=== PATIENT | female | born 1965 | race Caucasian/White ===

== ENCOUNTER 2019-12-30 13:06 | Emergency (ER) | payer SELFPAY ==
[2019-12-30 13:14] VITALS: BP 158/104; PULSE 92; TEMP 36.5; O2SAT 97
--- NOTE | 2019-12-30 13:20 | ED.GENADUL_ITS ---
Discharge Plan Disposition Patient Disposition: HOME Condition: Stable Discharge Details Chief Complaint: RespSymp Clinical Impression: URI (upper respiratory infection) Primary Care Provider: None,None ED Provider: Yesi Austin Home Meds and New Rx's Prescriptions: New azithromycin 250 mg tablet See Rx Instructions .ROUTE .COMPLEX Qty: 6 RF: 0 benzonatate [Tessalon Perles] 100 mg capsule 100 mg PO BID-TID PRN (Reason: cough) Qty: 14 RF: 0 Discharge Instructions Instructions: Upper Respiratory Infection (ED) Additional Instructions: Follow up with primary care provider in 3-5 days. Return to ED sooner if any worsening or concerns. Increase oral fluids. Take medications as directed. At this time your symptoms are consistent with a viral upper respiratory infection. It is very unlikely that this is from coronavirus. At this time you do not have the indications that the CDC would recommend for inpatient testing for coronavirus. I have ordered an outpatient test they will call you on Thursday to make an appointment for testing. Out of an abundance of precaution it would be reasonable to self quarantine yourself for a total of 14 days or until completely symptom-free for greater than 24-48 hours. It would be prudent to wear a mask at all times, always wash your hands frequently, follow-up closely with your primary care provider. You can always call their office first. If you notice any worsening of your symptoms, or any new symptoms such as vomiting, diarrhea, fever, chills, shortness of breath, chest pain, numbness, weakness, or fainting, please CALL and then return immediately to the emergency department for reevaluation. Please CALL first and then follow up with your primary care provider as soon as possible for reassessment and reevaluation. As always, it was a pleasure participating in your medical care today. Stand Alone Forms: Work Release Medical Decision Making 54-year-old female presents with upper respiratory type symptoms since August. Patient states that she was only given albuterol inhaler to go home with has not had any other treatment. She states that her son went to [place] back in August. She reports cough, nausea vomiting diarrhea, fever but none upon arrival. Initial work-up ordered including chest x-ray, albuterol nebulizer, and flu swab. Influenza swab is negative for flu a and B, patient received nebulizer and situation is improved after nebulizer. Patient states she feels better. I will order the [place] 19 nasopharynx swab as an outpatient. Will discuss process and instructions will be given to patient. IMPRESSION: No acute pulmonary findings. Currently the patient does have a concerning travel history to a high risk area, and/or direct or known indirect exposure to an area and/or patient's with known coronavirus activity. The patient demonstrates some concerning red flags as noted by the CDC for coronavirus including fever, cough, and/or shortness of breath. The patient looks notably clinically well, and does not demonstrate evidence of respiratory distress, significant or severe illness, or sepsis. Per CDC recommendations, coronavirus testing has been performed and is approved by the [facility]. Additionally patient currently does not demonstrate symptoms indicative of admission or further observation here. At this time based on the patient's current clinical picture symptoms are likely secondary to a non- coronavirus viral illness. Out of an abundance of precaution taking into account the current level of national concern, the patient's entire clinical picture, and CDC recommendations, the patient can be discharged home. Per CDC recommendations we will recommend a 14-day quarantine of the patient I have discussed good handwashing techniques, the importance of a mask, and we have also included CDC recommendations for home monitoring and isolation. I have extensively reviewed the treatment plan and discharge instructions with the patient. I have addressed all patient concerns at this time. The patient was made aware of what symptoms to monitor for that would warrant a return to the emergency department. I also discussed the importance of calling the patient's PCP, as well as the ED for any concerns or prior to return. Discussed the plan with the patient, they demonstrate verbal understanding and agreement with our assessment and plan at this time. Patient was placed on follow-up list for establishment of primary care provider. Lab Data Lab results reviewed: Yes I reviewed the patient's lab results. HPI General Mode of arrival: ambulatory . Date/Time Provider Initiated Documentation: 12/30/19 13:12 . Limitations to Documentation: no limitations . Information obtained by: patient . HPI Narrative: 54-year-old female presents with upper respiratory type symptoms since August. Patient states that she was only given albuterol inhaler to go home with has not had any other treatment. She states that her son went to [place] back in August. She reports cough, nausea vomiting diarrhea, fever but none upon arrival. Related Data Home Medications Medication Instructions Recorded Confirmed azithromycin See Rx Instructions .ROUTE 12/30/19 .COMPLEX #6 tab benzonatate [Tessalon Perles] 100 mg PO BID-TID PRN #14 cap 12/30/19 Previous Rx's Medication Instructions Recorded azithromycin See Rx Instructions .ROUTE 12/30/19 .COMPLEX #6 tab benzonatate [Tessalon Perles] 100 mg PO BID-TID PRN #14 cap 12/30/19 General Stated Complaint: RespSymp GLENNA: 3 Review of Systems Narrative: Constitutional: Negative for weight loss, alert and oriented, well groomed, normal body habitus, appears comfortable. HEENT: Denies trauma, headaches, blurry vision, nasal discharge, sore throat, trouble swallowing. Chest: Denies chest pain, palpitations, irregular rhythm, hypertension. Respiratory: Denies, hemoptysis. Positive cough. GI: Denies abdominal pain, constipation. Reports intermittent nausea vomiting diarrhea. : Denies dysuria, hematuria, flank pain, rectal bleeding. Neuro: Denies dizziness, blurry vision, weakness, syncope, headache or facial numbness. Hematologic: Denies easy bruising, intolerance to heat or cold, hair loss. [facility] Social History Smoking/Tobacco Use Status: Current-Occasional Tobacco Type: cigarettes Years smoked: 25 Alcohol Intake: never Drug use: Occasionally Substance use type: marijuana Do you feel safe at home: Yes Exam Narrative Exam Narrative: Constitutional: Allert and oriented x3. Appears stated age. Head: Normocephalic, no trauma. Eyes: Pupils PERRLA, Red reflex noted, EOM's intact. Eyelids symmetrical withour lesions, discharge, or swelling. ENT: Bilateral TM's WNL, External ear normal to inspection, no mastoid TTP, swelling, or erythema, Nasal turbinates WNL, no nasal discharge. Normal dentition, Posterior pharynx WNL, no exudate. Chest: RRR, Normal S1, S2, distal pulses intact. Resp: Lungs clear to auscultation bilaterally, no wheezes, rales, or rhonchi. Musculoskeletal: Normal gait, 5/5 strength to all four extremities. Skin: No suspicious rashes or lesions. Capillary refill less than 2 sec. Neurologic: Cranial nerves II-XII intact. Alert and oriented x 3. DTR's intact. Hematologic/Lymphatic: No ecchymosis, no lymphadenopathy. Course Vital Signs Vital signs: Vital Signs Temperature 36.5 C 12/30/19 13:14 Pulse 92 H 12/30/19 13:14 Blood Pressure 158/104 H 12/30/19 13:14 Pulse Oximetry 97 12/30/19 13:14 Temperature 36.5 C 12/30/19 13:14 Pulse 92 H 12/30/19 13:14 Blood Pressure 158/104 H 12/30/19 13:14 Blood Pressure Position Sitting 12/30/19 13:14 Pulse Oximetry 97 12/30/19 13:14 Oxygen Delivery Method Room Air 12/30/19 13:14 Oxygen Flow Rate 0 12/30/19 13:14
[2019-12-30 13:38] VITALS: RESP 16; RESP 8
[2019-12-30] MEDS: Albuterol/Ipratropium 3 ML UPD VIAL UPD (13:38)
--- NOTE | 2019-12-30 14:00 | DI.RAD_ITS ---
EXAM: XR PORTABLE CHEST AP CLINICAL HISTORY: Cough TECHNIQUE: 2D digital imaging was performed. COMPARISON: No exams were available for comparison FINDINGS: MEDIASTINUM: Normal. HEART: Normal. PULMONARY VASCULATURE: Normal. LUNGS: Clear. PLEURAL SPACE: No pleural effusion or pneumothorax. BONE:Normal. OTHER FINDINGS:Normal. IMPRESSION: No acute pulmonary findings. DATA REPOSITORY: RADIATION DOSE DELIVERED:
[2019-12-30 15:48] VITALS: BP 124/68; PULSE 97; RESP 16; TEMP 36.8; O2SAT 99
--- NOTE | 2019-12-30 21:23 | NUR.NOTE ---
copied and put in care management box. Nursing Note:
[2020-01-01 21:45] LABS: SARS-CoV-2 RNA Undetected (Undetected); SARS-CoV-2 Specimen Source Nasopharynx
--- NOTE | 2020-01-04 15:18 | NUR.NOTE ---
patient aware of negative covid-19 results. patient does not have a PCP. care management aware. patient was requesting clearance to return to work, DINO Eubanks contacted [facility] for guidance. please see [facility] note. Nursing Note:
--- NOTE | 2020-02-24 12:12 | PDOC.ERCMPRO ---
- If Service Date Differs Date of service: 12/26/19 Time of Service: 12:13 Care Management Progress Note At the request of ED provider, CM coordinated a referral to [facility] to assist patient in establishing care with a primary care provider.
== END 2019-12-30 15:50 | disposition home or self-care (01) ==
LOC: ER 15:51
PROVIDERS: Emergency Provider Registered Nurse Emergency
DX: J06.9 Acute upper respiratory infection, unspecified (principal); R05 Cough; R50.9 Fever, unspecified; R11.2 Nausea with vomiting, unspecified; B34.9 Viral infection, unspecified; F17.210 Nicotine dependence, cigarettes, uncomplicated
CPT/HCPCS: 87449; 94640; 99283; U0003; 71045; J7620

== ENCOUNTER 2021-01-17 12:37 | Outpatient (CLI) | payer MEDICAID, SELFPAY ==
[2021-01-17 13:32] LABS: Abs Immature Grans 0.02 10^3/uL (0.0-0.06); Absolute Basophil Count 0.05 10^3/uL (0.0-0.2); Absolute Eosinophil Count 0.15 10^3/uL (0.0-0.7); Absolute Lymphocyte Count 2.79 10^3/uL (1.2-3.4); Absolute Monocyte Count 0.55 10^3/uL (0.1-0.8); Absolute Neutrophil Count 3.69 10^3/uL (1.2-6.7); Basophils % 0.7; Eosinophils % 2.1; HCT 45.5 % (36.0-46.0); HGB 15.4 g/dL (11.2-15.7); Immature Grans % 0.3; Lymphocytes % 38.5; MCH 30.9 pg (27.0-33.0); MCHC 33.8 % (32.0-36.0); MCV 91.2 fL (80-95); MPV 9.1 fL (8.0-11.0); Monocytes % 7.6; Neutrophils % 50.8; Nucleated RBC 0 %; Platelet Count 319 10^3/uL (130-400); RBC 4.99 10^6/uL (3.93-5.22); RDW 12.4 % (11.7-14.6); RDW-SD 41.1 fL; WBC 7.25 10^3/uL (4.4-10.8)
[2021-01-17 13:33] LABS: Bilirubin Small (Negative); Blood Negative (Negative); Clarity Clear (Clear); Glucose 500 mg/dL (Negative); Ketones >=160 mg/dL (Negative); Leukocyte Esterase Negative (Negative); Nitrite Negative (Negative); Specific Gravity >= 1.030 (1.005-1.025); Urobilinogen 0.2 EU/dL (Up TO 0.2); pH 5.5 (5-8)
[2021-01-17 13:51] LABS: Hemoglobin A1C 12.1 % (<5.7)
[2021-01-17 14:14] LABS: Iron 83 ug/dL (50-170); Total Iron Binding Capacity 315 ug/dL (250-450)
[2021-01-17 14:39] LABS: Vitamin D 25 Total 38.1 ng/mL (30-100)
[2021-01-17 14:44] LABS: ALT 27 U/L (14-59); AST 15 U/L (15-37); Alkaline Phosphatase 120 U/L (46-116); Anion Gap 10.6 mmol/L (3-11); BUN 12 mg/dL (7-18); Bilirubin, Total 0.4 mg/dL (0.2-1.0); CO2 26.4 mmol/L (21.0-32.0); CREATININE 0.6 mg/dL (0.55-1.02); Calcium 9.3 mg/dL (8.5-10.1); Calculated LDL 157 mg/dL (<100); Chloride 104 mmol/L (98-107); Cholesterol 226 mg/dL (<200); Ferritin 54 ng/mL (8-252); Glucose 200 mg/dL (74-106); HDL Cholesterol 43 mg/dL (40-60); Potassium 4.4 mmol/L (3.5-5.1); Sodium 141 mmol/L (136-145); TSH 0.74 uIU/mL (0.36-3.74); Total Protein 7.1 g/dL (6.4-8.2); Triglyceride 132 mg/dL (<150); Vitamin B12 667 pg/mL (193-986)
[2021-01-17 14:46] LABS: Folate > 20.0 ng/mL (8.6-20.0)
[2021-01-17 15:03] LABS: FREE T4 1.01 ng/dL (0.76-1.46)
[2021-01-17 22:01] LABS: T3,Free 3.3 pg/mL (2.8-5.3)
[2021-01-17 22:37] LABS: Thyroperoxidase Antibody 79 U/mL (<=60)
[2021-01-18 16:54] LABS: C-Peptide 1.9 ng/mL (1.1 - 4.4)
== END 2021-01-17 12:38 | disposition home or self-care (01) ==
LOC: LBO 12:38
PROVIDERS: PCP Family Medicine; Visit Provider Naturopath
DX: E11.65 Type 2 diabetes mellitus with hyperglycemia (principal); E04.9 Nontoxic goiter, unspecified; E55.9 Vitamin D deficiency, unspecified; R53.83 Other fatigue; R35.0 Frequency of micturition
CPT/HCPCS: 36415; 80053; 80061; 82306; 81003; 82607; 82728; 82746; 83036; 83540; 83550; 84439; 84443; 84481; 84681; 85025; 86376

== ENCOUNTER 2021-01-17 18:38 | Emergency (ER) | payer MEDICAID, SELFPAY ==
[2021-01-17] VITALS (14 sets, daily range): BP systolic 108–136; BP diastolic 83–94; PULSE 78–96; TEMP 36.5; O2SAT 94–98
[2021-01-17 19:00] LABS: Bilirubin Small (Negative); Blood Negative (Negative); Clarity Clear (Clear); Glucose >=1000 mg/dL (Negative); Ketones >=160 mg/dL (Negative); Leukocyte Esterase Negative (Negative); Nitrite Negative (Negative); Specific Gravity 1.025 (1.005-1.025)
--- NOTE | 2021-01-17 19:15 | RT.EKG_ITS ---
APPROVED REPORT Exam: Resting ECG Patient Location: E HR:84 bpm ECG Measurements Heart Rate 84 AXIS NM 164 P 46 QRSd 70 QRS -19 QT 360 T 34 QTc 427 Conclusion Sinus rhythm...normal P axis, V-rate 60- 99 Probable left atrial enlargement...P >50mS, <-0.10mV V1 Inferior infarct, old...Q >35mS, II III aVF
[2021-01-17] MEDS: Normal Saline 1,000 ML 1000 ML IV (19:24)
[2021-01-17 19:26] LABS: Abs Immature Grans 0.04 10^3/uL (0.0-0.06); Absolute Basophil Count 0.07 10^3/uL (0.0-0.2); Absolute Eosinophil Count 0.21 10^3/uL (0.0-0.7); Absolute Lymphocyte Count 3.41 10^3/uL (1.2-3.4); Absolute Monocyte Count 0.73 10^3/uL (0.1-0.8); Absolute Neutrophil Count 4.81 10^3/uL (1.2-6.7); Basophils % 0.8; Eosinophils % 2.3; HCT 44.3 % (36.0-46.0); HGB 15.2 g/dL (11.2-15.7); Immature Grans % 0.4; Lymphocytes % 36.8; MCH 31.2 pg (27.0-33.0); MCHC 34.3 % (32.0-36.0); MPV 9.2 fL (8.0-11.0); Monocytes % 7.9; Neutrophils % 51.8; Nucleated RBC 0 %; Platelet Count 314 10^3/uL (130-400); RBC 4.87 10^6/uL (3.93-5.22); RDW 12.3 % (11.7-14.6); RDW-SD 40.8 fL; WBC 9.27 10^3/uL (4.4-10.8)
--- NOTE | 2021-01-17 19:29 | ED.GENADUL_ITS ---
Discharge Plan Disposition Patient Disposition: HOME Condition: Stable Discharge Details Clinical Impression: Diabetes mellitus Primary Care Provider: Edson Brunson ED Provider: Yesi Austin Home Meds and New Rx's Prescriptions: New Lantus Solostar U-100 Insulin 100 unit/mL (3 mL) insulin pen 15 unit subcut QAM Qty: 3 RF: 2 Trulicity 0.75 mg/0.5 mL pen injector 0.75 mg subcut QWEEK Qty: 0.5 RF: 1 metformin 500 mg tablet 500 mg PO DAILY Qty: 30 RF: 1 No Action albuterol sulfate 90 mcg/actuation HFA aerosol inhaler 2 puff IH Q6H PRN (Reason: shortness of breath or wheezing) Qty: 18 RF: 6 Discharge Instructions Instructions: Diabetes and Nutrition (ED), Diabetes Type 1: Management (ED) Additional Instructions: You are placed on a care management list to help establish for follow-up PCP in 1 week. You are also placed on the list to help you get in with hematology nurse educator within 1 week. Begin taking the Metformin once daily, the long-acting Lantus insulin once daily. Also given a prescription for Trulicity which is 1 a week please discuss this with your primary care provider. Check your blood sugars at least 3 times a day. Please return for blood glucose readings less than 60 or greater then 300. Please return for any confusion, weakness, vomiting diarrhea, feeling sick at all. Referrals: Edson Brunson DO [Primary Care Provider] - 3 days Discharge Data Discharge Date/Time-TO BE ENTERED AT DEPARTURE: 01/17/21 21:32 Medical Decision Making 56-year-old female presents to the ER with complaint of hyperglycemia. She was seen recently by a linotyper and had some labs drawn today which showed a glucose of 200 and a hemoglobin A1c of 12.1. She was referred to the ER for further evaluation. She reports over the last couple weeks checking her sugars at home and glucose has been running in the 600s to 400s. She states that over the last week she has changed her diet which has brought her blood sugar down. She does have complaints of headache, blurry vision, mild chest pain on the way over here which she reports has resolved, flank pain worse on the right increased urinary frequency and polydipsia. She does have a strong family history of diabetes. She does also have a history of mitral valve prolapse and childhood rheumatic fever surgical history includes tubal ligation. She reports that her mother father and brother have all had diabetes she is a daily smoker occasional alcohol and also endorses marijuana Labs ordered including CBC, CMP, VBG and urinalysis. Patient was given a liter of normal saline. Urinalysis shows greater than 1000. Glucose small bilirubin. 168 urine ketones. Glucose is 254 anion gap 11.9. Sodium potassium and chloride all within normal limits. VBG shows pH 7.42, PCO2 36 bicarb 23, CO2 21. CBC is largely within normal limits. Due to lack of primary care, hemoglobin A1c of 12 and reports of blood sugars being in the 4?600's I am considering admission for beginning of insulin and diabetic education. 2100: Spoke with Dr. Yi who is on for hospitalist regarding patient case and details he does not recommend admission at this time. He did discuss and gave recommendations for prescription for Metformin and a long-acting basal insulin such as Lantus he also did mention Trulicity which is once a week. Patient verbalized understanding. Patient placed on a care management list for PCP follow-up and hematology nurse educator follow-up. Patient remained hemodynamically stable throughout stay all her questions were answered to the best my ability. This text was generated using Mobule dictation system, please disregard any oddities of phrase or misspellings. HPI General Mode of arrival: ambulatory . Date/Time Provider Initiated Documentation: 01/17/21 18:39 . Limitations to Documentation: no limitations . Information obtained by: patient . HPI Narrative: 56-year-old female presents to the ER with complaint of hyperglycemia. She was seen recently by a linotyper and had some labs drawn today which showed a glucose of 200 and a hemoglobin A1c of 12.1. She was referred to the ER for further evaluation. She reports over the last couple weeks checking her sugars at home and glucose has been running in the 600s to 400s. She states that over the last week she has changed her diet which has brought her blood sugar down. She does have complaints of headache, blurry vision, mild chest pain on the way over here which she reports has resolved, flank pain worse on the right increased urinary frequency and polydipsia. She does have a strong family history of diabetes. She does also have a history of mitral valve prolapse and childhood rheumatic fever surgical history includes tubal ligation. She reports that her mother father and brother have all had diabetes she is a daily smoker occasional alcohol and also endorses marijuana Related Data Home Medications Medication Instructions Recorded Confirmed albuterol sulfate 90 mcg/actuation 2 puff IH Q6H PRN #18 gm 01/10/20 01/17/21 aerosol inhaler dulaglutide [Trulicity] 0.75 mg SUBCUT QWEEK #0.5 ml 01/17/21 insulin glargine [Lantus Solostar 15 unit SUBCUT QAM #3 ml 01/17/21 U-100 Insulin] metformin 500 mg PO DAILY #30 tab 01/17/21 Previous Rx's Medication Instructions Recorded albuterol sulfate 90 mcg/actuation 2 puff IH Q6H PRN #18 gm 01/10/20 aerosol inhaler dulaglutide [Trulicity] 0.75 mg SUBCUT QWEEK #0.5 ml 01/17/21 insulin glargine [Lantus Solostar 15 unit SUBCUT QAM #3 ml 01/17/21 U-100 Insulin] metformin 500 mg PO DAILY #30 tab 01/17/21 Allergies Allergy/AdvReac Type Severity Reaction Status Date / Time No Known Allergies Allergy Verified 01/17/21 18:49 General Stated Complaint: Diabetes GLENNA: 3 Review of Systems Constitutional Constitutional: Reports as per HPI and Reports headache(s) Eyes Eyes: Reports blurry vision and Reports requires corrective lenses ENT Ears, Nose, Mouth, and Throat: Reports headache(s) Cardiovascular Cardiovascular: Reports as per HPI and Reports chest pain Respiratory Respiratory: Denies chest congestion and Denies cough Gastrointestinal Gastrointestinal: Reports as per HPI and Denies diarrhea Genitourinary Genitourinary: Reports as per HPI Neurologic Neurologic: Reports headache(s) Endocrine Endocrine: Reports polydipsia and Reports polyuria [facility] Medical History Foot deformity, acquired History of rheumatic fever as a child Mitral valve prolapse Tubal ligation evaluation (~1995) Family History Mother , heart aneurysm Aneurysm Dementia Father Cancer bladder Brother Pancreatic cancer Social History Smoking/Tobacco Use Status: Current-Occasional Tobacco Type: cigarettes Tobacco: How many years used: 25 Quit status: considering quitting Second Hand Exposure: No Smoking risk assessment performed?: Yes Alcohol Intake: never Drug use: Daily Substance use type: marijuana Adopted: No Foster care: No Housing: apartment Number of Children: 1 Communication Needs: None current occupation: [employer] Sexually active: No What type of physical activity do you participate in: other Details: active at work Frequency: 5-6 times per week Seatbelt use: sometimes Drive intox or ride w/intox local [place] truck driver: No Working smoke detector in home: Yes Fire extinguisher in home: Yes Carbon monox detector in home: Yes Do you feel safe at home: Yes Do you feel safe in your relationship?: Yes Exam Narrative Exam Narrative: Constitutional: Alert and oriented x3. Appears stated age. Well-nourished body habitus. Head: Normocephalic, no trauma. Eyes: Pupils PERRLA, Red reflex noted, EOM's intact. Eyelids symmetrical without lesions, discharge, or swelling. ENT: Bilateral TM's WNL, External ear normal to inspection, no mastoid TTP, swelling, or erythema, Nasal turbinates WNL, no nasal discharge. Normal dentition, Posterior pharynx WNL, no exudate. Chest: RRR, Normal S1, S2, distal pulses intact. Resp: Lungs clear to auscultation bilaterally, no wheezes, rales, or rhonchi. Abd: Soft, nontender to palpation all 4 quadrants. Musculoskeletal: Normal gait, 5/5 strength to all four extremities. Skin: No suspicious rashes or lesions. Capillary refill less than 2 sec. Neurologic: Cranial nerves II-XII intact. Alert and oriented x 3. DTR's intact. Hematologic/Lymphatic: No ecchymosis, no lymphadenopathy. Course Vital Signs Vital signs: Vital Signs Temperature 36.5 C 01/17/21 18:41 Pulse 96 H 01/17/21 18:41 Blood Pressure 120/85 01/17/21 18:41 Pulse Oximetry 96 01/17/21 18:41 Temperature 36.5 C 01/17/21 18:41 Temperature Source Temporal Artery Scan 01/17/21 18:41 Pulse 96 H 01/17/21 18:41 Respiratory Effort Non-Labored 01/17/21 18:48 Blood Pressure 120/85 01/17/21 18:41 Blood Pressure Position Sitting 01/17/21 18:41 Pulse Oximetry 96 01/17/21 18:41 Oxygen Delivery Method Room Air 01/17/21 18:41 Oxygen Flow Rate 0 01/17/21 18:41 Pain Level 0 01/17/21 18:41 Lab/Test Results Lab/Test Results: Laboratory Tests Range/Units 01/17/21 01/17/21 18:55 19:21 WBC (4.4-10.8) 10^3/uL 9.27 RBC (3.93-5.22) 10^6/uL 4.87 Hgb (11.2-15.7) g/dL 15.2 Hct (36.0-46.0) % 44.3 MCV (80-95) fL 91.0 MCH (27.0-33.0) pg 31.2 MCHC (32.0-36.0) % 34.3 RDW (11.7-14.6) % 12.3 Plt Count (130-400) 10^3/uL 314 MPV (8.0-11.0) fL 9.2 Immature Gran % 0.4 Neutrophils % 51.8 Lymphocytes % 36.8 Monocytes % 7.9 Eosinophils % 2.3 Basophils % 0.8 Nucleated RBC % % 0 Absolute Neutrophils (1.2-6.7) 10^3/uL 4.81 Absolute Lymphocytes (1.2-3.4) 10^3/uL 3.41 H Absolute Monocytes (0.1-0.8) 10^3/uL 0.73 Absolute Eosinophils (0.0-0.7) 10^3/uL 0.21 Absolute Basophils (0.0-0.2) 10^3/uL 0.07 Urine Color (Yellow) Yellow Urine Clarity (Clear) Clear Urine pH (5-8) 6.0 Ur Specific [place] (1.005-1.025) 1.025 Urine Protein (Negative) mg/dL Negative Urine Ketones (Negative) mg/dL >=160 H Urine Blood (Negative) Negative Urine Nitrite (Negative) Negative Urine Bilirubin (Negative) Small H Urine Urobilinogen (Up TO 0.2) EU/dL 1.0 H Ur Leukocyte Esterase (Negative) Negative Urine Glucose (Negative) mg/dL >=1000 H
[2021-01-17 19:39] LABS: ALT 25 U/L (14-59); AST 11 U/L (15-37); Albumin 3.8 g/dL (3.4-5.0); Alkaline Phosphatase 114 U/L (46-116); Anion Gap 11.9 mmol/L (3-11); BUN 17 mg/dL (7-18); Bilirubin, Total 0.3 mg/dL (0.2-1.0); CO2 24.1 mmol/L (21.0-32.0); CREATININE 0.7 mg/dL (0.55-1.02); Calcium 9.2 mg/dL (8.5-10.1); Chloride 104 mmol/L (98-107); Glucose 254 mg/dL (74-106); Magnesium 1.9 mg/dL (1.8-2.4); Potassium 3.8 mmol/L (3.5-5.1); Sodium 140 mmol/L (136-145); Total Protein 7.2 g/dL (6.4-8.2)
[2021-01-17 20:05] LABS: BE (Venous) -2 mmol/L (-2-3); HCO3 (Venous) 23 mmol/L (23-28); O2 Sat (Venous) 93 %; TCO2 (Venous) 21 mmol/L (24-29); pCO2 (Venous) 36 mmHg (41-51); pH (Venous) 7.42 (7.31-7.41); pO2 (Venous) 58 mmHg
[2021-01-17] MEDS: Acetaminophen 325 MG TAB 650 MG PO (21:25)
[2021-01-17] MEDS: metFORMIN 500 MG TAB PO (21:25)
--- NOTE | 2021-01-18 01:02 | NUR.NOTE ---
Put copy of referral in [employer]'s box.Nursing Note:
--- NOTE | 2021-01-18 09:40 | NUR.NOTE ---
Nursing Note: Patient called stating that she went to [facility] and they did not have her prescriptions. I called [facility] [place] and they stated that they did have the prescriptions and for her to pick them up in 1 to 1.5 hrs. I told the patient and she is aware. Carrie Dillon
== END 2021-01-17 21:32 | disposition home or self-care (01) ==
PROVIDERS: Emergency Provider Registered Nurse Emergency; PCP Family Medicine
DX: E10.9 Type 1 diabetes mellitus without complications (principal)
CPT/HCPCS: 80053; 82805; 93005; 99283; 81003; 83735; 85025; 93010

== ENCOUNTER 2022-07-21 08:32 | Emergency (ER) | payer MEDICAID, SELFPAY ==
[2022-07-21 08:37] VITALS: BP 132/86; PULSE 89; RESP 17; TEMP 36.7; O2SAT 98
--- NOTE | 2022-07-21 10:06 | W.ED.GENAD ---
Discharge Plan Disposition Patient Disposition: HOME Discharge Details Clinical Impression: Uterine prolapse Primary Care Provider: Edson Brunson ED Provider: Carley Denson Home Meds and New Rx's Prescriptions: Continued cholecalciferol (vitamin D3) 25 mcg (1,000 unit) capsule 25 mcg PO DAILY berberine-herbal comb no.18 Capsule PO TID (DME) blood-glucose meter Misc See Rx Instructions .ROUTE .MEDSUPPLY Qty: 1 0RF Rx Instructions: As directed to check blood glucose. No insulin. Dispense covered brand. (DME) Blood Glucose Test Strip See Rx Instructions .ROUTE .MEDSUPPLY Qty: 100 3RF Rx Instructions: As directed to check blood glucose daily. No insulin. Dispense covered brand. (DME) lancets Misc See Rx Instructions .ROUTE .MEDSUPPLY Qty: 100 3RF Rx Instructions: As directed to check blood glucose daily. No insulin. Dispense covered brand. metformin 1,000 mg tablet 1,000 mg PO BID Qty: 180 3RF albuterol sulfate 90 mcg/actuation HFA aerosol inhaler 2 puff IH Q6H PRN (Reason: shortness of breath or wheezing) Qty: 18 6RF Discharge Instructions Instructions: Uterine Prolapse (ED) Additional Instructions: Please return immediately to the emergency department if you develop any new or worsening symptoms, if your condition does not improve as expected, or if you become otherwise concerned. It is extremely important that you call soon as possible to make an appointment to be seen in follow-up for this visit by your primary care doctor. It is extremely important that you attend your scheduled appointment with gynecology. Referrals: [facility] [Provider Group] - 07/23/22 9:00 am Edson Brunson DO [Primary Care Provider] - Discharge Data Discharge Date/Time-TO BE ENTERED AT DEPARTURE: 07/21/22 14:01 Medical Decision Making Concern for uterine prolapse. Vag path/gc/chl sent for somehwat heterogenous appearance of cervix. Exam/hx at this time not c/w PID, acute emergent intra-abdominal process. Plan for table operator consult. I discussed Pt presentation with Dr. Cerna of table operator, who recommends pelvic US, outpt f/u with gynecology, recommends finger splinting for assistance with urination/defecation until seen by table operator as outpt. Will obtain pelvic US now to facilitate outpt f/u. Ultrasound negative for acute process. Plan for outpatient follow-up with gynecology. I had a discussion with Patient regarding return to emergency department precautions, home care, and importance of outpatient follow-up. Pt verbalizes understanding of the plan and is amenable. Patient discharged to home with clear plan for outpatient follow-up. All questions were answered. Disposition decision was made weighing the risks and benefits of hospitalization versus outpatient treatment, the risk for further decompensation, and the patient's wishes. Medical Records Medical records reviewed: Yes I reviewed the patient's medical records. Imaging Data Radiologic Study: Attestation: I personally reviewed and interpreted this imaging study as follows: Radiologist's impression: EXAM:? US PELVIS LIMITED CLINICAL HISTORY: ? uterine prolapse.? TECHNIQUE:? Transabdominal and transvaginal pelvic ultrasound was performed using standard protocol. COMPARISON:? No exams were available for comparison FINDINGS: UTERUS: Position: Anteverted. Size: 5.5 long by 2.8 AP by 3.7 transverse cm Endometrium: 0.2 cm. Normal for patient's menstrual status. Myometrium: Unremarkable. Cervix: Unremarkable. OVARIES: The left ovary was not visualized on this examination. Right: 2 x 1.1 x 1.6 cm Cyst or mass: No suspicious cystic or solid masses.? DOPPLER: Color: Uniform flow to the right ovary.? CUL-DE-SAC: Free fluid: None. Other: None. IMPRESSION: 1. No evidence of a uterine mass. 2. Normal-appearing uterus with endometrial stripe within normal limits. 3. Unremarkable right ovary.? The left ovary was not visualized on this examination.? No left adnexal mass is seen. 4. Findings were discussed with Dr. Carley Denson at 12:57 p.m. on 07/21/2022. Lab Data Lab results reviewed: Yes I reviewed the patient's lab results. Labs: Laboratory Tests Range/Units 07/21/22 12:50 Chlamydia DNA Probe (Negative) Negative Chlamydia/GC DNA Source Not Applicable N.gonorrhoeae DNA Probe (Negative) Negative HPI General Mode of arrival: ambulatory. Date/Time Provider Initiated Documentation: 07/21/22 10:06. Limitations to Documentation: no limitations. Information obtained by: patient, RN notes reviewed and old records reviewed. HPI Narrative: Micahelle Zee is a 57-year-old woman with a history of nfe-ocngfas-yexzdmnht diabetes, mitral valve prolapse presenting to the emergency department with uterine prolapse. Patient reports that over the past week she had relatively sudden onset of constipation and sensation of urinary retention/needing to push her urine out. Patient reports that she is not normally constipated and has not had similar symptoms in the past. Patient reports that she was going to the bathroom last night and wiped and noticed that it seemed as if she was experiencing uterine prolapse from her vagina. Patient reports that she has also had low back pain wrapping around to bilateral hips since onset of symptoms 1 week ago. She reports that this is ongoing, denies any other pain. She denies fever, shortness of breath, vomiting, diarrhea, numbness, weakness. Patient reports baseline intermittent cough that is unchanged and nausea. Has had a normal appetite. Related Data Home Medications Medication Instructions Recorded Confirmed berberine-herbal comb no.18 capsule cap PO TID 01/28/21 01/02/22 blood sugar diagnostic (Blood #100 ea 01/28/21 01/02/22 Glucose Test strips) blood-glucose meter #1 ea 01/28/21 01/02/22 cholecalciferol (vitamin D3) 25 25 mcg PO DAILY 01/28/21 07/21/22 mcg (1,000 unit) capsule lancets #100 ea 01/28/21 01/02/22 albuterol sulfate 90 mcg/actuation 2 puff inhalation Q6H PRN 12/06/21 07/21/22 aerosol inhaler shortness of breath or wheezing #18 grams metformin 1,000 mg tablet 1,000 mg PO BID #180 tabs 03/27/22 07/21/22 Previous Rx's Medication Instructions Recorded blood sugar diagnostic (Blood #100 ea 01/28/21 Glucose Test strips) blood-glucose meter #1 01/28/21 lancets #100 ea 01/28/21 albuterol sulfate 90 mcg/actuation 2 puff inhalation Q6H PRN 12/06/21 aerosol inhaler shortness of breath or wheezing #18 grams metformin 1,000 mg tablet 1,000 mg PO BID #180 tabs 03/27/22 Allergies Allergy/AdvReac Type Severity Reaction Status Date / Time No Known Allergies Allergy Verified 07/23/22 09:14 General Stated 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: 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[employer]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 GLENNA: 3 Review of Systems Narrative: Constitutional: denies fevers Eyes: denies eye pain ENT: denies ear pain, dental pain, sore throat Cardiovascular: denies chest pain Respiratory: denies SOB, reports chronic intermittent cough GI: denies abdominal pain, vomiting, diarrhea, reports constipation, nausea : denies flank pain, dysuria, reports urinary hesitation MSK: denies neck pain, arthralgias, myalgias, reports low bilateral back pain Skin: denies rash Neuro: denies headaches, numbness, weakness PFSH All Active Problems Uterine prolapse (Acute) Stress fracture of metatarsal bone of left foot (Acute 03/17/22) Bunionette of left foot (Acute) Left foot pain - 12/25/21 Podiatry note Acquired bilateral metatarsus adductus (Acute) 12/25/21 Podiatry note Type 2 diabetes mellitus with diabetic polyneuropathy (Acute) 12/25/21 Podiatry note Diabetes mellitus (Chronic) Foot deformity, acquired (Acute) Mitral valve prolapse (Acute) Medical History History of rheumatic fever as a child Tubal ligation evaluation (~1995) Surgical History History of bunionectomy of left great toe (01/21/22) [facility] - [facility] Family History Mother , heart aneurysm Aneurysm Dementia Father Cancer bladder Brother Pancreatic cancer Social History Smoking/Tobacco Use Status: Current-Occasional Tobacco Type: cigarettes Tobacco: How many years used: 25 Quit status: considering quitting Second Hand Exposure: No Smoking risk assessment performed?: Yes Alcohol Intake: never Drug use: Daily Substance use type: marijuana Adopted: No Foster care: No Housing: apartment Number of Children: 1 Communication Needs: None 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[employer] Sexually active: No How often do you talk on the phone with friends or family?: three or more times per week Panel score (0-1 are the most socially isolated patients): 1 What type of physical activity do you participate in: other Details: active at work Frequency: 5-6 times per week Seatbelt use: sometimes Drive intox or ride w/intox commercial driver's license driver: No Working smoke detector in home: Yes Fire extinguisher in home: Yes Carbon monox detector in home: Yes Do you feel safe at home: Yes Do you feel safe in your relationship?: Yes Exam Narrative Exam Narrative: Constitutional: well and [id number]-heblzvdoa, pleasant, conversing normally HENT: head atraumatic/normocephalic/normal inspection, mucous membranes moist Eyes: conjunctiva normal, sclera normal, pupils 3mm b/l Neck: no stridor, normal ROM, trachea midline Resp: normal work of breathing, speaking in full sentences Cardio: normal rate, normal rhythm GI: abdomen soft, non-tender, non-distended : Normal appearance to the external genitals on pelvic exam, general discomfort during speculum exam, normal appearance to the cervix, small amount of white discharge. Prolapse to the introitus noted in left lateral decubitus position Back: normal inspection, no rash, no tenderness to palpation of the lumbar spine or paraspinals Skin: warm, dry, normal color, no rash Neuro: alert, not altered, grossly non-focal, normal tone Ext: no edema Psych: normal mood, normal affect, normal behavior Course Vital Signs Vital signs: Vital Signs Temperature 36.7 C 07/21/22 08:37 Pulse 89 07/21/22 08:37 Respiratory Rate 17 07/21/22 08:37 Blood Pressure 132/86 07/21/22 08:37 Pulse Oximetry 98 07/21/22 08:37 Temperature 36.7 C 07/21/22 08:37 Temperature Source Tympanic 07/21/22 08:37 Pulse 89 07/21/22 08:37 Respiratory Rate 17 07/21/22 08:37 Respiratory Effort Non-Labored 07/21/22 08:40 Blood Pressure 132/86 07/21/22 08:37 Blood Pressure Position Sitting 07/21/22 08:37 Pulse Oximetry 98 07/21/22 08:37 Oxygen Delivery Method Room Air 07/21/22 08:37 Oxygen Flow Rate 0 07/21/22 08:37 Pain Level 6 07/21/22 08:37
[2022-07-21 11:23] VITALS: RESP 18
[2022-07-21 11:37] VITALS: BP 99/74; PULSE 86; RESP 18; TEMP 37.3; O2SAT 99
--- NOTE | 2022-07-21 12:00 | DI.US_ITS ---
Exam(s) US PELVIS LIMITED EXAM: US PELVIS LIMITED CLINICAL HISTORY: uterine prolapse. TECHNIQUE: Transabdominal and transvaginal pelvic ultrasound was performed using standard protocol. COMPARISON: No exams were available for comparison FINDINGS: UTERUS: Position: Anteverted. Size: 5.5 long by 2.8 AP by 3.7 transverse cm Endometrium: 0.2 cm. Normal for patient's menstrual status. Myometrium: Unremarkable. Cervix: Unremarkable. OVARIES: The left ovary was not visualized on this examination. Right: 2 x 1.1 x 1.6 cm Cyst or mass: No suspicious cystic or solid masses. DOPPLER: Color: Uniform flow to the right ovary. CUL-DE-SAC: Free fluid: None. Other: None. IMPRESSION: 1. No evidence of a uterine mass. 2. Normal-appearing uterus with endometrial stripe within normal limits. 3. Unremarkable right ovary. The left ovary was not visualized on this examination. No left adnexal mass is seen. 4. Findings were discussed with Dr. Carley Denson at 12:57 p.m. on 07/21/2022. DATA REPOSITORY:
[2022-07-22 14:41] LABS: Chlamydia Result Negative (Negative); GC Result Negative (Negative)
== END 2022-07-21 14:01 | disposition home or self-care (01) ==
PROVIDERS: Emergency Provider Student in an Organized Health Care Education/Training Program; PCP Family Medicine
DX: N81.4 Uterovaginal prolapse, unspecified (principal); E11.9 Type 2 diabetes mellitus without complications
CPT/HCPCS: 76857; 87491; 87591; 99284; 87480; 87510; 87660; 99282

== ENCOUNTER 2022-08-11 02:35 | Outpatient (CLI) | payer MEDICAID, SELFPAY ==
[2022-08-11 13:53] LABS: HCT 43.3 % (36.0-46.0); HGB 14.1 g/dL (11.2-15.7); MCHC 32.6 % (32.0-36.0); MCV 89 fL (80-95); MPV 8.6 fL (8.0-11.0); Platelet Count 353 10^3/uL (130-400); RBC 4.86 10^6/uL (3.93-5.22); RDW-SD 46.1 fL; WBC 9.67 10^3/uL (4.4-10.8)
[2022-08-11 14:24] LABS: ALT 20 U/L (14-59); AST 14 U/L (15-37); Albumin 3.8 g/dL (3.4-5.0); Alkaline Phosphatase 114 U/L (46-116); Anion Gap 13.1 mmol/L (3-11); BUN 28 mg/dL (7-18); Bilirubin, Total 0.2 mg/dL (0.2-1.0); CO2 22.9 mmol/L (21.0-32.0); CREATININE 1.2 mg/dL (0.55-1.02); Calcium 9.3 mg/dL (8.5-10.1); Chloride 105 mmol/L (98-107); Glucose 112 mg/dL (74-106); Potassium 4.7 mmol/L (3.5-5.1); Sodium 141 mmol/L (136-145); Total Protein 7.5 g/dL (6.4-8.2)
== END 2022-08-11 02:36 | disposition home or self-care (01) ==
LOC: LBO 02:35
PROVIDERS: PCP Family Medicine; Visit Provider Obstetrics & Gynecology Gynecology
DX: Z01.818 Encounter for other preprocedural examination (principal)
CPT/HCPCS: 36415; 80053; 85027; 86850; 86900; 86901

== ENCOUNTER 2022-08-13 10:38 | Observation (INO) | payer MEDICAID, SELFPAY ==
[2022-08-13] VITALS (58 sets, daily range): BP systolic 108–146; BP diastolic 72–104; PULSE 64–91; RESP 16–23; TEMP 36–36.4; O2SAT 78–100; BMI 31.1
[2022-08-13] MEDS: Lactated Ringers 1,000 ML 125 ML IV ×3 (06:39→19:16)
--- NOTE | 2022-08-13 07:00 | ANES.PREOP_ITS ---
General Info Date of Service Date Performed: 08/13/22 Height: 5 ft 1 in Weight: 74.7 kg Body Mass Index (BMI): 31.1 Surgical Procedure: Operation Date: 08/13/22 07:40 Proposed Procedure Side Surgeon p Hysterectomy Vaginal Laparoscopic Assist w/Bilateral Salpingoopherectomy, Bladder Cystoscopy Simi Quintanilla MD s Anterior/Posterior Repair Simi Quintanilla MD Meds Allergies and Home Medications Allergies Allergy/AdvReac Type Severity Reaction Status Date / Time No Known Allergies Allergy Verified 08/13/22 06:19 Home Medication Medication Instructions Recorded berberine-herbal comb no.18 capsule cap PO TID 01/28/21 blood sugar diagnostic (Blood #100 ea 01/28/21 Glucose Test strips) blood-glucose meter #1 ea 01/28/21 cholecalciferol (vitamin D3) 25 25 mcg PO DAILY 01/28/21 mcg (1,000 unit) capsule lancets #100 ea 01/28/21 albuterol sulfate 90 mcg/actuation 2 puff inhalation Q6H PRN 12/06/21 aerosol inhaler shortness of breath or wheezing #18 grams metformin 1,000 mg tablet 1,000 mg PO BID #180 tabs 03/27/22 Current Visit Medications: Current Medications Generic Name Dose Route Start Last Admin Trade Name Freq PRN Reason Stop Dose Admin Ringer's Solution 1,000 mls @ 125 mls/hr 08/13/22 06:00 08/13/22 06:39 IV 09/11/22 23:59 125 mls/hr INFUSION MISBAH Administration Cefazolin Sodium/Dextrose 2 gm in 50 mls @ 100 mls/hr 08/13/22 06:00 Ancef Duplex IVPB 09/11/22 23:59 PREOP MISBAH IV Miscellaneous Supplies 1 each 08/13/22 06:00 Iv Access IV 09/11/22 23:59 DIRECTED MISBAH Sodium Chloride 0 ml 08/13/22 06:00 Normal Saline Flush 10 Ml Syr IV 09/11/22 23:59 PRN PRN Sodium Chloride 0 ml 08/13/22 06:00 Normal Saline 10 Ml Vial IJ 09/11/22 23:59 DIRECTED PRN Sterile Water 0 ml 08/13/22 06:00 Water,Injection,Sterile 10 Ml Vial IJ 09/11/22 23:59 DIRECTED PRN PFSH Active Problems Active Problems: Problem Status Onset Code Uterine prolapse N81.4 Stress fracture of metatarsal bone of left foot 03/17/22 M84.375A Bunionette of left foot M21.622 Acquired bilateral metatarsus adductus M21.6X1, M21.6X2 Type 2 diabetes mellitus with diabetic polyneuropathy E11.42 Diabetes mellitus E11.9 Foot deformity, acquired M21.969 Mitral valve prolapse I34.1 Medical History Medical History History of rheumatic fever as a child Tubal ligation evaluation (~1995) Medical History Comments:: Denice Daily Surgical History Surgical History History of bunionectomy of left great toe (01/21/22) [facility] - Мария Guerrero Tobacco Smoking/Tobacco Use Status: Current-Occasional Tobacco Type: cigarettes Second hand exposure: No Alcohol Alcohol Intake: never Substance Use Substance use: Daily Substance use type: marijuana Vital Signs and Lab Results Vital Signs Most Recent Vital Signs in EMR: Most Recent Vital Signs Temp Pulse Resp BP Pulse Ox 36.4 C L 88 18 130/81 99 08/13/22 06:15 08/13/22 06:15 08/13/22 06:15 08/13/22 06:15 08/13/22 06:15 Point of Care Results Point of Care Results: Finger Stick Blood Glucose 110 08/13/22 06:33 Lab Results Blood Type / Crossmatch: Patient ABO/Rh O Positive 08/11/22 Antibody Screen NEGATIVE 08/11/22 Complete Blood Count: White Blood Count 9.67 10^3/uL (4.4-10.8) 08/11/22 13:40 Red Blood Count 4.86 10^6/uL (3.93-5.22) 08/11/22 13:40 Hemoglobin 14.1 g/dL (11.2-15.7) 08/11/22 13:40 Hematocrit 43.3 % (36.0-46.0) 08/11/22 13:40 Platelet Count 353 10^3/uL (130-400) 08/11/22 13:40 Complete Metabolic Panel: Sodium 141 mmol/L (136-145) 08/11/22 13:40 Potassium 4.7 mmol/L (3.5-5.1) 08/11/22 13:40 Chloride 105 mmol/L (98-107) 08/11/22 13:40 Carbon Dioxide 22.9 mmol/L (21.0-32.0) 08/11/22 13:40 BUN 28 mg/dL (7-18) H 08/11/22 13:40 Creatinine 1.2 mg/dL (0.55-1.02) H 08/11/22 13:40 Est GFR (CKD-EPI 2020) 52.80 (mL/min/1.73m2) 08/11/22 13:40 Calcium 9.3 mg/dL (8.5-10.1) 08/11/22 13:40 Albumin 3.8 g/dL (3.4-5.0) 08/11/22 13:40 Glucose 112 mg/dL (74-106) H 08/11/22 13:40 Liver Function Panel: Alanine Aminotransferase (ALT/SGPT) 20 U/L (14-59) 08/11/22 13: 40 Aspartate Amino Transf (AST/SGOT) 14 U/L (15-37) L 08/11/22 13: 40 Coagulation Panel: No Data to Display Cardiac Panel: No Data to Display Arterial Blood Gas: No Data to Display Venous Blood Gas: No Data to Display Pancreas Panel: No Data to Display Thyroid Panel: No Data to Display Infectious Disease: Neisseria gonorrhoeae DNA Probe Negative (Negative) 07/21/22 1 2:50 Blood Cultures: No Data to Display Toxicology Panel: No Data to Display Imaging and Studies Imaging and Studies Study information below may be from another EMR and interpreted by another provider. Please see original notes in EMR for more complete details. EKG Summary: Conclusion Sinus rhythm...normal P axis, V-rate 60- 99 Probable left atrial enlargement...P >50mS, <-0.10mV V1 Inferior infarct, old...Q >35mS, II III aVF 01/17/21 Anesthesia Assessment and Plan Anesthesia History Personal History: No History of Anesthesia Complications Family History: No Family History of Anesthesia Complications Exercise Tolerance Exercise Tolerance: Metabolic Equivalents>4 Pertinent Negatives Pertinent Negatives: No Symptoms of GERD, No Major Cardiovascular Symptoms or Complaints, No Major Pulmonary Symptoms or Complaints and No History of CVA/TIA Cardiac & Pulmonary Exam Cardiac Exam: Heart Murmur Present Pulmonary Exam: Clear Bilateral Breath Sounds Implantable Cardiac Device Does patient have a Pacemaker or an ICD?: No Airway Exam Known Difficult Airway: No Mallampati Class: 3 Mouth Opening: Normal (> 3cm) Thyromental Distance: Less than 3 cm Neck Range of Motion: Full ROM Neck Circumference: Normal Teeth Condition: Normal Dentition ASA Classification ASA Score: ASA 2 Emergency Case?: No NPO Status NPO Status: NPO Clears >2 hours, Solids >8 hours Anesthesia Plan Resuscitation Status: Full Code Anesthesia Technique: General Anesthesia Airway Planned: Endotracheal Tube Pain Management: Intrathecal Analgesia Monitors Used: Standard Monitors
[2022-08-13] MEDS: ceFAZolin 2 GM/50 ML BAG IVPB (07:39)
[2022-08-13] MEDS: Bupivacaine 0.25% Pres-Free 30 ML VIAL (08:19)
[2022-08-13 08:46] LABS: Source Nasal/Nares
--- NOTE | 2022-08-13 09:18 | UTER_PTH ---
PATIENT: Michaelle Zee LOC: ICU U#:[id number] AGE/SX: 57/F ROOM: ICU.219 RE08/13/[address]: Simi Quintanilla : 1965 BED: A DIS: 08/14/2022 SPEC #: [id number] RECD: 08/13/22 12:52 STATUS: DEBBIE REQ #: [id number] TRIP: 08/13/22 09:[address]: Simi Quintanilla DEPT: Surgical Specimen RECD BY: Anneliese Weber ENTERED: 08/13/22 12:53 SP TYPE: UTER OTHR DR: Edson Brunson DO Tissues: 1 - UTERUS W OR W/O OVARIES(NOT TUMOR/PROLAPSE) Procedures: GROSS AND MICRO LEVEL 4 Comments: [id number]
[2022-08-13 09:29] LABS: COVID-19 PCR POSITIVE (Negative)
--- NOTE | 2022-08-13 10:43 | ROE_ITS ---
Date of service: 08/13/22 Time of Service: 10:43 Operative Note Operative Note DATE OF PROCEDURE: 08/13/22 PRE-OP DIAGNOSIS: stage 2 uterine prolpase, stage 3 rectocele, stage 1 cystocele covid test positive PROCEDURE: LAVH, BSO, posterior coloporraphy, bladder cystoscopy SURGEON: Simi Quintanilla ASSISTING SURGEON: Yolanda Cerna Refer to Anesthesia Record ESTIMATED BLOOD LOSS: 50 PATHOLOGY: other (uterus, fallopian tubes, ovaries to pathology) COMPLICATIONS: None Patient was transported to: ICU Patient's condition: stable Indications: 57yo postmenopausal female with new onset of symptomatic pelvic organ prolapse. She declined a pessary and requested surgical repair. Findings: Uterus small, previous tubal ligation, nl appearing ovaries. Nl appendix, Nl upper abdomen. Pt had an interoperative Covid test as per hospital protocol which returned as positive. Procedure Description: Patient was taken to the operating room where spinal anesthesia was attempted but unsuccessful. General endotracheal anesthesia was administered without diffi culty. She received 2 g of Ancef upon arrival in the OR. She was then placed in the dorsal lithotomy position in yellowfin stirrups with SCDs in place. After being prepped and draped in the usual sterile fashion a surgical timeout was performed. Romano catheter was placed to gravity drainage. A weighted speculum was placed in the vagina and the anterior lip of the cervix was grasped with a single-tooth tenaculum and the cervix dilated to 14 Barber. A Zumi uterine manipulator was successfully inserted into the uterine cavity, the balloon on the device inflated and the device left in place. Attention was then turned to the patient's abdomen. The umbilical fold was infiltrated with quarter percent Marcaine without epinephrine. A scalpel was then used to make a 12mm vertical skin incision in the umbilical fold. Two penetrating towel clips were used to tent up the skin and through the periumbilical incision and a Veres needle was introduced into the abdomen with carbon dioxide as the distention medium. Intra-abdominal placement was confirmed by a drop in the intra-abdominal pressure. Once a pneumoperitoneum was established a 12 mm Visiport was placed under direct visualization. Patient was then placed in Trendelenburg position. Two sites approximately 6 cm diagonally from the umbilical incision the skin were infiltrated with 1cc of 0.25% Marcaine without epinephrine, incised with a scalpel and two 5 mm lower ports were placed under direct visualization. After careful inspection of the pelvis a LigaSure electrocautery device was used to clamp, cauterize and transect the suspensory ligament of the left ovary. The left broad ligament was clamped, cauterized and transected to access the left round ligament which was then clamped, cauterized and transected to the level of the lower uterine segment. Uterine vessels were clamped and cauterized. The vesico-uterine peritoneum was incised and the the from the lower uterine segment and mobilized off of the body of the cervix. The pedicles of the suspensory, round and broad ligaments were inspected and noted to be hemostatic. On the contralateral side the right ovarian suspensory ligament, the round l igament and right broad ligament were sequentially clamped, cauterized and transected using the Ligasure device to the level of the insertion of the uterine vessels. The remaining the vesicouterine peritoneum was incised across the lower uterine segment and the bladder flap created using the Ligasure device and gentle counter traction. All pedicles were inspected and noted to be hemostatic. Decision was made to proceed with the vaginal portion of the case. Laparoscopic instruments were removed from the ports , the pneumoperitoneum was reduced, and the was abdomen covered with sterile drape. A weighted vaginal speculum was placed in the vagina and the anterior and posterior lips of the cervix were grasped with [place] clamps and the body of the cervix infiltrated with a dilute solution of 1% Lidocaine with epinephrine. A circumferential incision of the cervical epithelium was made with a Bovie electrocautery. The posterior cul-de-sac was entered sharply and through the this incision a long billed weighted speculum was placed. The left and right uterosacral ligament complexes were identified clamped, transected and suture-ligated and the suture held long. The vesicouterine fascia was identified and the anterior cul-de-sac incised and entered sharply. Through this incision a curved right angled retractor was inserted and used to retract the bladder away from the operative field. The remaining right and left broad ligament attatchments were sequentially clamped, cauterized, and transected and the specimen was passed off of the operative field. The vaginal cuff was reapproximated in a vertical fashion with a running suture of 0 Vicryl. Care was taken to incorporate the uterosacral ligament complexes into the abdomen closure using an interrupted 0 Vicryl suture. When the vaginal cuff was closed a anterior vaginal wall was well supported and incision was made to not perform a anterior colporrhaphy. The posterior colporrhaphy was performed by initially injecting 2cc of?2% Lidocaine?below the vaginal epithelium between the 5 o'clock and 7 o'clock positions at the edge of the vagina and perineal body. The vaginal epithelium was incised with a scalpel in transverse fashion. The vaginal epithelium was dissected off of the underlying fibromuscularis layer in a cephalad fashion until the inferior margin of vaginal cuff was reached. The vaginal epithelium wa s incised in the midline and the dissection of the vaginal epithelium extended laterally until the levator muscles were reached at the lateral margins of the vagina. Plication of the lateral fibromuscaris tissue was performed proximally and progressed caudally toward the hymenal ring using interrupted sutures of 0- Vicryl. The redundant vaginal epithelium was trimmed and the edges of the vaginal epithelium was reapproximated with a running 0 Vicryl suture. The site was noted to be hemostatic at the completion of the procedure. Instruments removed from the vagina and attention was again turned to the abdomen where a pneumoperitoneum was reestablished and the pelvis inspected using the laparoscope.? The vaginal cuff was intact and was hemostatic as were the round ligament and broad ligament pedicles. The instruments were removed from the port sites, the pneumoperitoneum reduced and the ports removed. The fascia of the periumbilical skin incision was closed with interrupted suture of 0 Vicryl.? The skin of all port site incisions were reapproximated with a subcuticular closure of 4-0 Monocryl followed by steri strips and bandaids. A cystoscopy was performed with both ureteral jets patent with a brisk reflux of urine from each.? The bladder was inspected and no evidence of sutures were present.? Romano catheter was reinserted to gravity drainage and the patient was placed in the dorsal supine position, awakened, extubated, and recovered in the OR secondary to COVID precautions.? All sponge lap needle counts correct x2.
--- NOTE | 2022-08-13 11:46 | NUR.NOTE ---
Patient recived from PACU, no acute respiratory distress, stable vital signs no c/o pain.Nursing Note:
--- NOTE | 2022-08-13 11:59 | W.ANESPOSTOP ---
Postoperative Evaluation Date, Time and Location Date Performed: 08/13/22 Time Performed: 11:14 Patient Location: Intensive Care Unit Vital Signs Most Recent Imported Vital Signs: Most Recent Vital Signs Temp Pulse Resp BP Pulse Ox 36.3 C L 68 17 121/76 95 08/13/22 10:51 08/13/22 11:32 08/13/22 10:51 08/13/22 11:32 08/13/22 11:40 Assessment Mental Status: Awake (Alert & Oriented to Patient Baseline) Airway and Respiratory Function: Patent airway with normal (patient baseline) respiratory exam Cardiovascular Function: Hemodynamically Stable Hydration Status: Adequately Hydrated Nausea & Vomiting: No Nausea or Vomiting Pain: Pain is tolerable per patient Peripheral Nerve Block: Patient did not receive a nerve block
[2022-08-13] MEDS: oxyCODONE 5 mg/Acetaminophen 325 mg TAB PO ×3 (13:27→22:30)
[2022-08-13] MEDS: Nicotine 21 MG/24 HR PATCH TD (16:05)
[2022-08-13] MEDS: Ketorolac 30 MG/ML VIAL IVP ×2 (16:05→22:30)
[2022-08-13] MEDS: Docusate Sodium 100 MG CAP PO (17:15)
[2022-08-13] MEDS: metFORMIN 500 MG TAB 1000 MG PO (17:15)
[2022-08-13] MEDS: Normal Saline Flush 10 ML SYR IV (22:31)
--- NOTE | 2022-08-13 22:49 | NUR.NOTE ---
pt explains to RN that she is a white dragon, the last on on the planet pt explains a current fight between demons and an rose and shows rn photos blown up that show wrinkles in fabric, shadows and pt points out areas where she sees images, describes seeing herself in a cloak riding a dragon fighting a demon this is me when I fought this demon . pt pulls necklace? long stone\crystal on chain with dragon (metal keychain sized) hangs stone in air over bed and states a prayer like statement to father tadeo then tells RN that path of the swinging stone equesl yes or no then asks several questions of father tadeo tells RN that there never were slaves, there are no nazis, and the Jews.... at this point the RN cuts pt off and changes the subject. Although the pt's statements are unusual, the pt has historical items evidence via photographs and dragon/stone form purse. These seem to be her normal thoughts, not a change in mental status.
[2022-08-14 00:22] VITALS: BP 132/72; PULSE 64; RESP 18; TEMP 37; O2SAT 94
[2022-08-14] MEDS: oxyCODONE 5 mg/Acetaminophen 325 mg TAB PO ×2 (03:32→08:12)
[2022-08-14] MEDS: Ketorolac 30 MG/ML VIAL IVP (03:33)
[2022-08-14] MEDS: Normal Saline Flush 10 ML SYR IV (03:34)
[2022-08-14 07:29] LABS: HCT 35.3 % (36.0-46.0); HGB 11.6 g/dL (11.2-15.7); MCH 29.2 pg (27.0-33.0); MCHC 32.9 % (32.0-36.0); MCV 89 fL (80-95); MPV 8.8 fL (8.0-11.0); Platelet Count 304 10^3/uL (130-400); RBC 3.97 10^6/uL (3.93-5.22); RDW 13.9 % (11.7-14.6); RDW-SD 45.5 fL
[2022-08-14 08:04] VITALS: BP 126/74; PULSE 72; O2SAT 96
[2022-08-14] MEDS: Docusate Sodium 100 MG CAP PO (08:12)
[2022-08-14] MEDS: metFORMIN 500 MG TAB 1000 MG PO (08:13)
[2022-08-14 08:22] VITALS: BP 126/74; PULSE 82; RESP 18; TEMP 36; O2SAT 97
--- NOTE | 2022-08-14 08:32 | DSE_ITS ---
Date of service: 08/14/22 Time of Service: 08:34 DS: Diagnosis Discharge Diagnosis (1) History of bilateral salpingo-oophorectomy: Status: Acute (2) S/P laparoscopic assisted vaginal hysterectomy (LAVH): Status: Acute (3) Lab test positive for detection of COVID-19 virus: Status: Acute Asessment and Plan: Pt received intra-op Covid PCR test as per Surgery Dept protocol which returned as positive. Pt remained on Covid precautions during hosptialization. Pt asymptomatic. Discharge Plan Disposition Patient Disposition: HOME Condition: Stable Discharge Details Reason For Visit: LAVH,BSO, posterior coloporraphy,bladder cystoscop Admit Date/Time: 08/13/22 10:38 Admit Provider: Simi Quintanilla Attending Provider: Simi Quintanilla Primary Care Provider: Edson Brunson [facility] Course Hospital Course: Pt admitted the morning of surgery and underwent a LAVH with BSO, posterior colporrhaphy and bladder cystoscopy. She was found to be Covid positive by PCR and was kept on Covid respiratory precautions during her hospitalization. Discharged to home on POD1 with Percocet and Ibuprofen for pain. Pt will f/u in office in 2 weeks for postop check. Home Meds and New Rx's Prescriptions: New oxycodone-acetaminophen [Endocet] 5-325 mg tablet 1 tab PO Q6H MDD 4 PRNQty: 10 0RF Continued cholecalciferol (vitamin D3) 25 mcg (1,000 unit) capsule 25 mcg PO DAILY berberine-herbal comb no.18 Capsule PO TID (DME) blood-glucose meter Misc See Rx Instructions .ROUTE .MEDSUPPLY Qty: 1 0RF Rx Instructions: As directed to check blood glucose. No insulin. Dispense covered brand. (DME) Blood Glucose Test Strip See Rx Instructions .ROUTE .MEDSUPPLY Qty: 100 3RF Rx Instructions: As directed to check blood glucose daily. No insulin. Dispense covered brand. (DME) lancets Misc See Rx Instructions .ROUTE .MEDSUPPLY Qty: 100 3RF Rx Instructions: As directed to check blood glucose daily. No insulin. Dispense covered brand. metformin 1,000 mg tablet 1,000 mg PO BID Qty: 180 3RF albuterol sulfate 90 mcg/actuation HFA aerosol inhaler 2 puff IH Q6H PRN (Reason: shortness of breath or wheezing) Qty: 18 6RF Discharge Instructions Additional Instructions: keep your 2 week postop appointment. Nothing in the vagina. No lifting over 10 lbs for 6 weeks. Stand Alone Forms: [facility] SurgeryW/Incision Activity:: Activity as Tolerated Equipment/Supplies:: No Equipment Needed Diet:: As Tolerated Discharge Orders Discharge Orders: Discharge Order (Routine); Ordered 08/14/22 Ordered By: Simi Quintanilla DS: Summary Summary Time spent discussing smoking cessation with patient: 3 to 10 minutes Time Spent with Patient providing and/or coordinating discharge services: Less than 30 minutes Status at Discharge Functional status at discharge: independent ambulation Overall status at discharge: patient is back to baseline Mental Status: mental status grossly normal Speech and Movement: pressured speech Mood: anxious mood Affect: anxious affect Exam Narrative Exam Narrative: Did well overnight. Caballero discontinued on day of surgery. Tolerating regular diet. Pain well managed Const General: no acute distress Nutritional Appearance: obese Orientation: alert, awake and oriented x3 Resp Effort & Inspection: normal respiratory effort Auscultation: clear to auscultation bilaterally Cardio Rate: regular rate Rhythm: regular rhythm GI Inspection: normal to inspection and incision (covered with steri strips. incision clean dry and intact) Palpation: soft and no hepatosplenomegaly General: deferred Skin General skin exam: no rashes or lesions noted Lesions: no lesions Rashes: no rashes Extrem General: normal to inspection Psych Appearance: grossly normal Mental Status: mental status grossly normal Speech and Movement: pressured speech Mood: anxious mood Affect: anxious affect Attitude: cooperative Thought Process: normal Thought Content: normal Insight: insight good Judgment: judgment good DS: Data Vitals/I&O Vitals and I&O: Vital Signs Temperature 96.8 F L 08/14/22 08:22 Temperature Source Temporal Artery Scan 08/14/22 08:22 Pulse 82 08/14/22 08:22 Pulse Rhythm Regular 08/14/22 00:17 Respiratory Rate 18 08/14/22 08:22 Respiratory Effort Non-Labored 08/14/22 08:19 Respiratory Depth Normal 08/14/22 08:19 Respiratory Pattern Normal 08/14/22 08:19 Blood Pressure 126/74 08/14/22 08:22 Blood Pressure Mean 85 08/14/22 08:04 Pulse Oximetry 97 08/14/22 08:22 Respiratory End-tidal CO2 25 08/13/22 10:51 Oxygen Delivery Method Room Air 08/14/22 08:22 Oxygen Flow Rate 0 08/14/22 08:22 Pain Level 5 08/14/22 08:22 Intake & Output 08/13/22 08/13/22 08/14/22 11:59 23:59 11:59 Intake Total 850 / 2777.084 1927.084 / 2777.084 690 / 690 Output Total 50 / 725 675 / 725 Balance 800 / 2052.084 1252.084 / 2052.084 690 / 690 Weight 164 lb 10.965 oz 165 lb 5.547 oz Intake: IV 850 / 2026.084 1177.084 / 2026.084 Oral 750 / 750 690 / 690 Output: Urine 675 / 675 Estimated Blood Loss 50 / 50 Other: Urine Color Yellow Green Hannibal Indigo Urine Appearance Clear Clear Clear Urine Odor None Comment Uterine prolapse pt using icu toliet under cabinet w/o asking rn 1st. states she had a BM and also urinated twice since caballero out. states she will not be using commode chair pt voids on fold away toilet in room, refuses to use commode Emesis Description None Voiding Methods Toilet Data Completed and Pending Labs on day of discharge: Labs from last 24 hours 08/14/22 08/13/22 06:15 08:34 WBC 11.10 H RBC 3.97 Hgb 11.6 D Hct 35.3 L MCV 89 MCH 29.2 MCHC 32.9 RDW 13.9 Plt Count 304 MPV 8.8 COVID-19 Source Nasal/Nares SARS-CoV-2 (PCR) POSITIVE A* PFSH All Active Problems (Updated 08/14/22 @ 08:35 by Simi Quintanilla MD) Lab test positive for detection of COVID-19 virus (Acute) History of bilateral salpingo-oophorectomy (Acute) S/P laparoscopic assisted vaginal hysterectomy (LAVH) (Acute) Uterine prolapse (Acute) Stress fracture of metatarsal bone of left foot (Acute 03/17/22) Bunionette of left foot (Acute) Left foot pain - 12/25/21 Podiatry note Acquired bilateral metatarsus adductus (Acute) 12/25/21 Podiatry note Type 2 diabetes mellitus with diabetic polyneuropathy (Acute) 12/25/21 Podiatry note Diabetes mellitus (Chronic) Foot deformity, acquired (Acute) Mitral valve prolapse (Acute) Medical History History of rheumatic fever as a child Tubal ligation evaluation (~1995) Surgical History History of bunionectomy of left great toe (01/21/22) [facility] - SylwiaJorge Mayes Yolanda Family History Mother , heart aneurysm Aneurysm Dementia Father Cancer bladder Brother Pancreatic cancer Social History Smoking/Tobacco Use Status: Current-Occasional Tobacco Type: cigarettes Tobacco: How many years used: 25 Quit status: considering quitting Second Hand Exposure: No Smoking risk assessment performed?: Yes Alcohol Intake: never Drug use: Daily Substance use type: marijuana Adopted: No Foster care: No Housing: apartment Number of Children: 1 Communication Needs: None 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
--- NOTE | 2022-08-14 08:42 | PDOC.CMIN ---
- If Service Date Differs Date of service: 08/14/22 Care Management Initial Assess REASON FOR HOSPITALIZATION:: BLAYNE PAST MEDICAL HISTORY/PAST SURGICAL HISTORY:: ll Active Problems . Uterine prolapse (Acute). Stress fracture of metatarsal bone of left foot (Acute 03/17/22). Bunionette of left foot (Acute). Left foot pain - 12/25/21 Podiatry note. Acquired bilateral metatarsus adductus (Acute). 12/25/21 Podiatry note. Type 2 diabetes mellitus with diabetic polyneuropathy (Acute). 12/25/21 Podiatry note. Diabetes mellitus (Chronic). Foot deformity, acquired (Acute). Mitral valve prolapse (Acute). Medical History . History of rheumatic fever as a child. Tubal ligation evaluation (~1995). Surgical History . History of bunionectomy of left great toe (01/21/22). [facility] - Мария Guerrero PREVIOUS FUNCTIONAL STATUS/SOCIAL/FAMILY SUPPORTS:: Michaelle lives in [place], [place] with her son Timbo. ADVANCE DIRECTIVES:: none on file Has patient been provided with info about the portal/API?: Yes Did the patient sign up for the portal?: Yes (previously) CODE STATUS:: Full Code PRIMARY CARE PHYSICIAN:: Medicaid POTENTIAL DISCHARGE NEEDS:: follow up with PCP and plan of care PATIENT/FAMILY EDUCATION NEEDS:: Review of discharge instructions, activity, limitations, follow up plan, discuss Ask Me Three. TRANSPORTATION:: via private vehicle with family PLAN:: Michaelle will likely discharge home with no new services. She will follow up with her community providers and plan of care and transport with family. CM will support Michaelle and assess for ongoing discharge needs.
--- NOTE | 2022-08-14 10:21 | PDOC.CMPRO ---
- If Service Date Differs Date of service: 08/14/22 Time of Service: 10:21 Care Management Progress Note Michaelle had a LAVH yesterday without complications and was discharged early this morning to home. No new services were needed. She transported with family via private vehicle and will follow up with her surgeon in 2 weeks.. During this admission Michaelle was found to be Covid positive and was isolated accordingly.
== END 2022-08-14 10:17 | disposition home or self-care (01) ==
LOC: SUR 11:47 → ICU 11:51
PROVIDERS: Admitting Provider Obstetrics & Gynecology Gynecology; PCP Family Medicine; Visit Provider Obstetrics & Gynecology Gynecology
PROC: 0UT9FZZ Resection of Uterus, Via Natural or Artificial Opening With Percutaneous Endoscopic Assistance (ICD-10-PCS; CPT 58552; principal; 2022-08-13 07:30)
PROC: 0JQC0ZZ Repair Pelvic Region Subcutaneous Tissue and Fascia, Open Approach (ICD-10-PCS; CPT 57260; 2022-08-13 07:30)
DX: N81.2 Incomplete uterovaginal prolapse (principal); E11.42 Type 2 diabetes mellitus with diabetic polyneuropathy; I34.0 Nonrheumatic mitral (valve) insufficiency; F12.90 Cannabis use, unspecified, uncomplicated; F17.210 Nicotine dependence, cigarettes, uncomplicated; Z79.84 Long term (current) use of oral hypoglycemic drugs; U07.1 COVID-19
CPT/HCPCS: 58552; 57250; 52000; 85027; 87635; 88305; 96361; 96374; 88307; G0378; J0131; J0690; J1100; J1885; J2250; J2405; J2704; J3010

== ENCOUNTER 2023-03-16 08:22 | Emergency (ER) | payer MEDICAID, SELFPAY ==
[2023-03-16 08:24] VITALS: BP 135/71; PULSE 96; RESP 18; TEMP 36.9; O2SAT 99
--- NOTE | 2023-03-16 09:15 | DI.CT_ITS ---
Exam(s) CT HEAD WO EXAM: CT HEAD WO CLINICAL HISTORY: AVERY x 1yr, now with right thigh numbness. TECHNIQUE: Imaging Protocol: Axial computed tomography images with coronal and sagittal reformatted images were created and reviewed COMPARISON: No exams were available for comparison FINDINGS: There are no skull fractures. There is no fluid in the visualized paranasal sinuses. There is no evidence of intracranial hemorrhage, mass effect, or shift of midline structures. There are no extra-axial fluid collections. The ventricles are not enlarged or shifted and there is no blo od within the ventricular system nor within the basal cisterns. There is mild symmetrical bifrontal atrophy IMPRESSION: No acute intracranial findings on this noninfused CT scan of the brain. Mild symmetrical bifrontal atrophy. If clinically indicated follow-up MRI can be performed. Called by myself to ER provider RADIATION DOSE DELIVERED: 617.28mGy.cm Total DLP DATA REPOSITORY: All CT scans at this facility are submitted to the National Radiology Data Registry (NRDR) Dose Index Registry (DIR) with the [employer] (A[employer]). RADIATION OPTIMIZATION: All CT scans at this facility use at least one of these dose optimization te chniques: automated exposure control; mA and/or kV adjustment per patient size (includes targeted exa ms where dose is matched to clinical indication); or iterative reconstruction.
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
[2023-03-16 09:19] VITALS: RESP 18
[2023-03-16 09:50] LABS: Abs Immature Grans 0.04 10^3/uL (0.0-0.06); Absolute Basophil Count 0.08 10^3/uL (0.0-0.2); Absolute Eosinophil Count 0.27 10^3/uL (0.0-0.7); Absolute Lymphocyte Count 2.75 10^3/uL (1.2-3.4); Absolute Monocyte Count 0.67 10^3/uL (0.1-0.8); Absolute Neutrophil Count 4.89 10^3/uL (1.2-6.7); Basophils % 0.9; Eosinophils % 3.1; HCT 40.2 % (36.0-46.0); Immature Grans % 0.5; Lymphocytes % 31.6; MCHC 32.3 % (32.0-36.0); MCV 87 fL (80-95); MPV 8.6 fL (8.0-11.0); Monocytes % 7.7; Neutrophils % 56.2; Platelet Count 376 10^3/uL (130-400); RBC 4.64 10^6/uL (3.93-5.22); RDW 15.2 % (11.7-14.6); RDW-SD 47.8 fL
[2023-03-16 10:05] LABS: ALT 20 U/L (14-59); AST 14 U/L (15-37); Albumin 3.9 g/dL (3.4-5.0); Alkaline Phosphatase 123 U/L (46-116); Anion Gap 8.9 mmol/L (3-11); BUN 20 mg/dL (7-18); Bilirubin, Total 0.2 mg/dL (0.2-1.0); CO2 25.1 mmol/L (21.0-32.0); CREATININE 0.8 mg/dL (0.55-1.02); Calcium 9.2 mg/dL (8.5-10.1); Chloride 105 mmol/L (98-107); Estimated GFR 85.35 (mL/min/1.73m2); Glucose 113 mg/dL (74-106); Magnesium 1.9 mg/dL (1.8-2.4); Potassium 4.4 mmol/L (3.5-5.1); Sodium 139 mmol/L (136-145); Total Protein 7.6 g/dL (6.4-8.2)
[2023-03-16 10:35] LABS: Bilirubin Negative (Negative); Blood Negative (Negative); Clarity Clear (Clear); Glucose Negative (Negative); Ketones Negative (Negative); Leukocyte Esterase Negative (Negative); Nitrite Negative (Negative); Specific Gravity >= 1.030 (1.005-1.025); Urobilinogen 0.2 mg/dL (Up to 0.2)
[2023-03-16 11:03] VITALS: BP 127/83; PULSE 81; RESP 16; O2SAT 99
[2023-03-16 11:37] LABS: *AMPHETAMINES SCREEN URINE Negative (Negative); *BARBITURATES SCREEN URINE Negative (Negative); *BENZODIAZEPINES SCREEN URINE Negative (Negative); Cannabinoids THC Positive (Negative); Cocaine Screen,Urine Negative (Negative); METHADONE URINE SCREEN Negative (Negative); OPIATES URINE SCREEN Negative (Negative)
[2023-03-16 11:39] LABS: Tricyclic Antidepressants Negative (Negative)
--- NOTE | 2023-03-16 12:31 | NUR.NOTE ---
called the patient after realizing that she may have left with her IV in. The patient states that she realized that the IV was still in and removed it herself. She confirmed that she removed the IV, held pressure and covered with a bandaide. The patient lives in [place] and did not feel she was able to drive back to confirm the IV was removed. NATEB
[2023-03-16 13:00] LABS: Vitamin B12 251 pg/mL (193-986)
== END 2023-03-16 11:05 | disposition home or self-care (01) ==
PROVIDERS: Emergency Provider Physician Assistant; PCP Family Medicine
DX: R20.8 Other disturbances of skin sensation (principal); R20.0 Anesthesia of skin; R51.9 Headache, unspecified; E11.9 Type 2 diabetes mellitus without complications; D64.9 Anemia, unspecified
CPT/HCPCS: 80053; 80307; 82962; 99284; 70450; 81003; 82607; 83735; 85025

== ENCOUNTER 2023-06-02 07:57 | Emergency (ER) | payer MEDICAID, SELFPAY ==
[2023-06-02] VITALS (16 sets, daily range): BP systolic 92–144; BP diastolic 53–82; PULSE 90–112; RESP 10–28; TEMP 36.9–37.2; O2SAT 95–96
--- NOTE | 2023-06-02 08:00 | RT.EKG_ITS ---
APPROVED REPORT Exam: Resting ECG Reason for Exam: chest discomfort Patient Location: E HR:88 bpm ECG Measurements Heart Rate 88 AXIS RI 138 P 21 QRSd 63 QRS -13 QT 320 T 46 QTc 388 Conclusion Sinus rhythm...normal P axis, V-rate 60- 99
[2023-06-02 08:25] LABS: Abs Immature Grans 0.04 10^3/uL (0.0-0.06); Absolute Basophil Count 0.09 10^3/uL (0.0-0.2); Absolute Eosinophil Count 0.38 10^3/uL (0.0-0.7); Absolute Lymphocyte Count 2.88 10^3/uL (1.2-3.4); Absolute Monocyte Count 0.58 10^3/uL (0.1-0.8); Basophils % 0.9; Eosinophils % 3.7; HCT 39.3 % (36.0-46.0); HGB 12.7 g/dL (11.2-15.7); Immature Grans % 0.4; Lymphocytes % 27.8; MCH 26.8 pg (27.0-33.0); MCHC 32.3 % (32.0-36.0); MCV 83 fL (80-95); MPV 8.5 fL (8.0-11.0); Monocytes % 5.6; Neutrophils % 61.6; Platelet Count 407 10^3/uL (130-400); RBC 4.74 10^6/uL (3.93-5.22); RDW 14.3 % (11.7-14.6); RDW-SD 43.6 fL; WBC 10.37 10^3/uL (4.4-10.8)
[2023-06-02] MEDS: Albuterol/Ipratropium 3 ML UPD VIAL UPD (08:28)
[2023-06-02] MEDS: ACETAMINOPHEN 1,000 MG/100 ML BTL 400 MG IVPB (08:30)
[2023-06-02 08:44] LABS: ALT 17 U/L (14-59); AST 12 U/L (15-37); Albumin 3.7 g/dL (3.4-5.0); Alkaline Phosphatase 126 U/L (46-116); Anion Gap 11.2 mmol/L (3-11); BUN 22 mg/dL (7-18); Bilirubin, Total 0.2 mg/dL (0.2-1.0); CO2 24.8 mmol/L (21.0-32.0); CREATININE 0.8 mg/dL (0.55-1.02); Calcium 9.4 mg/dL (8.5-10.1); Chloride 101 mmol/L (98-107); Estimated GFR 85.35 (mL/min/1.73m2); Glucose 214 mg/dL (74-106); Lipase 39 U/L (16-77); Potassium 4.2 mmol/L (3.5-5.1); Sodium 137 mmol/L (136-145); Total Protein 7.5 g/dL (6.4-8.2); Troponin I < 50 ng/L (<or=60)
--- NOTE | 2023-06-02 08:45 | DI.RAD_ITS ---
Exam(s) XR CHEST 2V PA LATERAL EXAM: XR CHEST 2V PA LATERAL CLINICAL HISTORY: cough, shortness of breath TECHNIQUE: 2D digital imaging was performed of the chest. Two images were obtained. PA and lateral views were obtained. COMPARISON: CR XR PORTABLE CHEST AP from 12/30/2019 FINDINGS: MEDIASTINUM: Normal. HEART: Normal. PULMONARY VASCULATURE: Normal. LUNGS: Clear. PLEURAL SPACE: No pleural effusion or pneumothorax. BONE:Within normal limits for the patient's age. OTHER FINDINGS:Normal. IMPRESSION: No acute pulmonary findings. DATA REPOSITORY: RADIATION DOSE DELIVERED:
--- NOTE | 2023-06-02 09:03 | W.ED.GENAD ---
Discharge Plan Disposition Patient Disposition: Home Discharge Details Clinical Impression: Bronchitis Primary Care Provider: Edson Brunson ED Provider: Anneliese Bains Home Meds and New Rx's Prescriptions: New prednisone 20 mg tablet 40 mg PO ONCE Qty: 10 0RF doxycycline hyclate 100 mg tablet 100 mg PO BID Qty: 20 0RF Continued cholecalciferol (vitamin D3) 25 mcg (1,000 unit) capsule 25 mcg PO DAILY berberine-herbal comb no.18 Capsule 1 cap PO TID (DME) blood-glucose meter Misc See Rx Instructions .ROUTE .MEDSUPPLY Qty: 1 0RF Rx Instructions: As directed to check blood glucose. No insulin. Dispense covered brand. (DME) Blood Glucose Test Strip See Rx Instructions .ROUTE .MEDSUPPLY Qty: 100 3RF Rx Instructions: As directed to check blood glucose daily. No insulin. Dispense covered brand. (DME) lancets Misc See Rx Instructions .ROUTE .MEDSUPPLY Qty: 100 3RF Rx Instructions: As directed to check blood glucose daily. No insulin. Dispense covered brand. metformin 1,000 mg tablet 1,000 mg PO BID Qty: 180 3RF albuterol sulfate 90 mcg/actuation HFA aerosol inhaler 2 puff IH Q6H PRN (Reason: shortness of breath or wheezing) Qty: 18 6RF Discharge Instructions Instructions: Acute Bronchitis (ED) Additional Instructions: Use your inhaler, 2 puffs every 4-6 hours with your spacer as needed for cough, wheeze, shortness of breath Take the steroids as prescribed for the next 5 days Take the antibiotic as prescribed Yogurt daily while on antibiotic and this will make you sensitive to the sun Increase your fluid hydration You may need Mucinex as needed for mucus production Referrals: Edson Brunson DO [Primary Care Provider] - Discharge Data Discharge Date/Time-TO BE ENTERED AT DEPARTURE: 06/02/23 09:58 Medical Decision Making 58-year-old female presents with upper respiratory symptoms for the past week, denies any real chest pain, mild shortness of breath, states she feels like she has phlegm in her chest EKG and labs are within normal limits, feels better after DuoNeb administration, will give albuterol spacer for home We will place on prednisone and treat with doxycycline as patient is a smoker and has had symptoms for a week and a half Discharged home in stable condition with stable vitals Return precautions reviewed and patient expressed understanding, lungs clear to auscultation, no respiratory distress, no calf pain or swelling, distal pulses intact, moist mucous oral membranes, alert and oriented x4 Recheck in 1 week recommended with persistent symptoms Diagnostic labs reviewed Chest x-ray does not show evidence of acute abnormality per radiology interpretation my review Flu, COVID, RSV negative HPI General Date/Time Provider Initiated Documentation: 06/02/23 08:09. HPI Narrative: This 58-year-old female presents for reports of upper respiratory symptoms, cough, congestion, sensation of phlegm in her throat and chest. Denies fever or chills. Been sick for approximately a week and a half. Denies any calf pain or swelling. Related Data Home Medications Medication Instructions Recorded Confirmed berberine-herbal comb no.18 capsule 1 cap PO TID 01/28/21 06/02/23 blood sugar diagnostic (Blood #100 ea 01/28/21 04/22/23 Glucose Test strips) blood-glucose meter #1 ea 01/28/21 04/22/23 cholecalciferol (vitamin D3) 25 25 mcg PO DAILY 01/28/21 06/02/23 mcg (1,000 unit) capsule lancets #100 ea 01/28/21 04/22/23 albuterol sulfate 90 mcg/actuation 2 puff inhalation Q6H PRN 03/06/23 06/02/23 aerosol inhaler shortness of breath or wheezing #18 grams metformin 1,000 mg tablet 1,000 mg PO BID #180 tabs 03/06/23 06/02/23 doxycycline hyclate 100 mg tablet 100 mg PO BID #20 tabs 06/02/23 prednisone 20 mg tablet 40 mg PO ONCE #10 tabs 06/02/23 Previous Rx's Medication Instructions Recorded blood sugar diagnostic (Blood #100 ea 01/28/21 Glucose Test strips) blood-glucose meter #1 ea 01/28/21 lancets #100 ea 01/28/21 albuterol sulfate 90 mcg/actuation 2 puff inhalation Q6H PRN 03/06/23 aerosol inhaler shortness of breath or wheezing #18 grams metformin 1,000 mg tablet 1,000 mg PO BID #180 tabs 03/06/23 doxycycline hyclate 100 mg tablet 100 mg PO BID #20 tabs 06/02/23 prednisone 20 mg tablet 40 mg PO ONCE #10 tabs 06/02/23 Allergies Allergy/AdvReac Type Severity Reaction Status Date / Time No Known Allergies Allergy Verified 06/02/23 09:20 General Stated Complaint: RespSymp GLENNA: 3 PFSH All Active Problems (Updated 06/02/23 @ 09:41 by ALLIE Yanez) Bronchitis (Acute) Postoperative examination (Acute) History of bilateral salpingo-oophorectomy (Acute) S/P laparoscopic assisted vaginal hysterectomy (LAVH) (Acute) Stress fracture of metatarsal bone of left foot (Acute 03/17/22) Bunionette of left foot (Acute) Left foot pain - 12/25/21 Podiatry note Acquired bilateral metatarsus adductus (Acute) 12/25/21 Podiatry note Type 2 diabetes mellitus with diabetic polyneuropathy (Acute) 12/25/21 Podiatry note Diabetes mellitus (Chronic) Foot deformity, acquired (Acute) Mitral valve prolapse (Acute) Medical History History of rheumatic fever as a child Tubal ligation evaluation (~1995) Surgical History History of bunionectomy of left great toe (01/21/22) [facility] - [facility] Family History Mother , heart aneurysm Aneurysm Dementia Father Cancer bladder Brother Pancreatic cancer Social History Smoking/Tobacco Use Status: Current-Occasional Tobacco Type: cigarettes Tobacco: How many years used: 25 Quit status: considering quitting Second Hand Exposure: No Smoking risk assessment performed?: Yes Alcohol Intake: never Drug use: Daily Substance use type: marijuana Adopted: No Foster care: No Housing: apartment Number of Children: 1 Communication Needs: None 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 Sexually active: No How often do you talk on the phone with friends or family?: three or more times per week Panel score (0-1 are the most socially isolated patients): 1 What type of physical activity do you participate in: other Details: active at work Frequency: 5-6 times per week Seatbelt use: sometimes 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 Working smoke detector in home: Yes Fire extinguisher in home: Yes Carbon monox detector in home: Yes Do you feel safe at home: Yes Do you feel safe in your relationship?: Yes Course Vital Signs Vital signs: Vital Signs Temperature 36.9 C 06/02/23 08:00 Pulse 91 H 06/02/23 08:00 Respiratory Rate 18 06/02/23 08:00 Blood Pressure 144/75 H 06/02/23 08:00 Pulse Oximetry 96 06/02/23 08:00 Temperature 37.2 C 06/02/23 08:30 Temperature Source Oral 06/02/23 08:00 Pulse 91 H 06/02/23 08:00 Respiratory Rate 18 06/02/23 08:00 Respiratory Effort Normal 06/02/23 08:19 Respiratory Depth Shallow 06/02/23 08:19 Blood Pressure 144/75 H 06/02/23 08:00 Blood Pressure Position Sitting 06/02/23 08:00 Pulse Oximetry 96 06/02/23 08:00 Oxygen Delivery Method Room Air 06/02/23 08:00 Oxygen Flow Rate 0 06/02/23 08:00 Pain Level 0 06/02/23 08:30 Lab/Test Results Lab/Test Results: Laboratory Tests Range/Units 06/02/23 06/02/23 06/02/23 08:08 08:08 11:14 WBC (4.4-10.8) 10^3/uL 10.37 RBC (3.93-5.22) 10^6/uL 4.74 Hgb (11.2-15.7) g/dL 12.7 Hct (36.0-46.0) % 39.3 MCV (80-95) fL 83 MCH (27.0-33.0) pg 26.8 L MCHC (32.0-36.0) % 32.3 RDW (11.7-14.6) % 14.3 Plt Count (130-400) 10^3/uL 407 H MPV (8.0-11.0) fL 8.5 Immature Gran % 0.4 Neutrophils % 61.6 Lymphocytes % 27.8 Monocytes % 5.6 Eosinophils % 3.7 Basophils % 0.9 Nucleated RBC % (0.0-0.3) % 0.0 Absolute Neutrophils (1.2-6.7) 10^3/uL 6.40 Absolute Lymphocytes (1.2-3.4) 10^3/uL 2.88 Absolute Monocytes (0.1-0.8) 10^3/uL 0.58 Absolute Eosinophils (0.0-0.7) 10^3/uL 0.38 Absolute Basophils (0.0-0.2) 10^3/uL 0.09 Sodium (136-145) mmol/L 137 Potassium (3.5-5.1) mmol/L 4.2 Chloride (98-107) mmol/L 101 Carbon Dioxide (21.0-32.0) mmol/L 24.8 Anion Gap (3-11) mmol/L 11.2 H BUN (7-18) mg/dL 22 H Creatinine (0.55-1.02) mg/dL 0.8 Est GFR (CKD-EPI 2020) (mL/min/1.73m2) 85.35 Glucose (74-106) mg/dL 214 H Calcium (8.5-10.1) mg/dL 9.4 Total Bilirubin (0.2-1.0) mg/dL 0.2 AST (15-37) U/L 12 L ALT (14-59) U/L 17 Alkaline Phosphatase (46-116) U/L 126 H Troponin I (<or=60) ng/L < 50 Cancelled Total Protein (6.4-8.2) g/dL 7.5 Albumin (3.4-5.0) g/dL 3.7 Lipase (16-77) U/L 39
[2023-06-02 09:29] LABS: COVID-19 PCR Negative (Negative); Influenza A PCR Negative (Negative); Influenza B PCR Negative (Negative); RSV PCR Negative (Negative)
[2023-06-02 09:31] LABS: Source Nasopharynx
[2023-06-02] MEDS: Albuterol HFA 8 GM 60 PUFF INH IH (09:55)
[2023-06-02] MEDS: Inhaler, Assist Device 1 EACH MC (09:56)
== END 2023-06-02 09:58 | disposition home or self-care (01) ==
PROVIDERS: Emergency Provider Physician Assistant; PCP Family Medicine
DX: J40 Bronchitis, not specified as acute or chronic (principal); E11.9 Type 2 diabetes mellitus without complications; F17.210 Nicotine dependence, cigarettes, uncomplicated
CPT/HCPCS: 80053; 83690; 87426; 87637; 93005; 94640; 96374; 99285; 71046; 84484; 85025; 93010; 99284; J0131; J7620

== ENCOUNTER → 2023-12-22 03:44 | Outpatient (CLI) | payer MEDICAID, SELFPAY ==
--- NOTE | 2023-12-22 08:15 | DI.MRI_ITS ---
Exam(s) MR BRAIN WO/W EXAM: MR BRAIN WO/W CLINICAL HISTORY: DELUSIONS,HEADACHE,HALLUCINATIONS,? MALIGNANCY,R44.1,R51.9,R44.0. TECHNIQUE: Multiplanar multisequence MRI of the brain was performed. CONTRAST MATERIAL: IV Contrast: 15 ML of Dotarem contrast administered. COMPARISON: CT CT HEAD WO from 03/16/2023 FINDINGS: VENTRICLES AND EXTRA AXIAL SPACES: Normal in size and morphology for the patient's age. HEMORRHAGE: None. CEREBRAL PARENCHYMA: No focus of restricted diffusion to suggest acute infarct. No space-occupying le cristo identified. Moderate frontotemporal atrophy, unchanged from prior CT with somewhat disproportio edmund for the patient's age.. Mild scattered high signal foci in the white matter, consistent with mi crovascular changes. MIDLINE SHIFT: None. BRAINSTEM/CEREBELLUM: Normal. CALVARIUM: Normal. ENHANCEMENT: No suspicious enhancement identified. VISUALIZED PARANASAL SINUSES/MASTOIDS: Small amount of mucous retention in the posterior right spheno id sinus. Sinuses otherwise clear. Orbits: Unremarkable. Pituitary: Normal. Vasculature: Normal flow voids. IMPRESSION: Moderate frontal temporal atrophy, somewhat disproportionate for the patient's age. Mild microvascul ar changes in the white matter. DATA REPOSITORY:
[2023-12-22 12:08] LABS: CREATININE 0.9 mg/dL (0.55-1.02)
[2023-12-22] MEDS: Gadoterate meglumine 20 ML SYRINGE 15 ML IVP (12:32)
[2023-12-22] MEDS: Normal Saline Flush 10 ML SYR IVP (12:33)
== END ==
PROVIDERS: PCP Family Medicine; Visit Provider Nurse Practitioner Adult Health
DX: R44.1 Visual hallucinations; R44.0 Auditory hallucinations; F22 Delusional disorders
CPT/HCPCS: 70553; 82565

== ENCOUNTER 2024-01-04 06:13 | Outpatient (CLI) | payer MEDICAID, SELFPAY ==
--- NOTE | 2024-01-04 21:41 | PDOC.EEG ---
Neurology EEG EEG: [facility] Department of Neurology EEG REPORT Date of Recordin01/04/24 Interpreting Physician: Dr. Maria Isabel Mendez PCP/Referring Provider: Destiny Stacy NP Reason for study: Ms. Zee is a 58 year-old with intermittent delusions. Current Medications: Home Medications Medication Instructions Recorded Confirmed Type berberine-herbal comb no.18 capsule 1 cap PO TID 01/28/21 12/24/23 History blood sugar diagnostic (Blood #100 ea 01/28/21 12/24/23 Rx Glucose Test strips) blood-glucose meter #1 ea 01/28/21 12/24/23 Rx cholecalciferol (vitamin D3) 25 25 mcg PO DAILY 01/28/21 12/24/23 History mcg (1,000 unit) capsule lancets #100 ea 01/28/21 12/24/23 Rx albuterol sulfate 90 mcg/actuation 2 puff inhalation Q6H PRN 03/06/23 12/24/23 Rx aerosol inhaler shortness of breath or wheezing #18 grams metformin 1,000 mg tablet 1,000 mg PO BID #180 tabs 03/06/23 12/24/23 Rx indomethacin 50 mg capsule 50 mg PO TID PRN gout flair #30 06/29/23 12/24/23 Rx caps METHODS: A 21 channel digitized electroencephalogram was performed in the [facility] Clinical Neurophysiology Laboratory. The 10/20 international system of electrode placement was used and bipolar and referential electrode montages were recorded. In addition to EEG the patient was monitored for EKG and lateral/vertical eye movements. Activation procedures of photic stimulation and hyperventilation were performed if applicable. Video was used during activation procedures and during events where applicable. The duration of the recording was 30 minutes. DESCRIPTION OF EEG: The patient was noted to be awake and drowsy during the recording. During maximal wakefulness a 9-10 Hz posterior background rhythm was present which was well-modulated, symmetrical, reactive to eye opening, and of moderate voltage. With eye opening the background activity changed to a low voltage mixture of alpha, beta, and occasional theta range frequencies. Faster frequencies were present in the bilateral anterior head regions. There was a normal anterior-posterior voltage gradient. During drowsiness, there was attenuation of the posterior dominant background rhythm and vertex waves. No stage II sleep was recorded. Activating Procedures: Photic stimulation was performed which produced a symmetrical posterior driving response at various flash frequencies. Hyperventilation was performed with moderate effort and produced no physiological slowing of the background. EKG: EKG revealed normal sinus rhythm. INTERPRETATION: This EEG is normal during the awake state as well as during photic stimulation and hyperventilation. PRIOR EEG: none CLINICAL CORRELATION: No focal regions of cerebral dysfunction or epileptiform activity was present. No sleep was recorded during the study which reduces the sensitivity of the exam. If seizure remains a part of the differential, consider a repeat sleep-deprived EEG or overnight ambulatory EEG. Maria Isabel Mendez MD Date of service: 01/04/24
== END 2024-01-04 06:14 | disposition home or self-care (01) ==
LOC: RT 06:13
PROVIDERS: PCP Family Medicine; Visit Provider Nurse Practitioner Adult Health
DX: R44.1 Visual hallucinations (principal); R44.0 Auditory hallucinations
CPT/HCPCS: 95816

== ENCOUNTER 2024-01-04 10:11 | Outpatient (CLI) | payer MEDICAID, SELFPAY ==
[2024-01-06 18:53] LABS: Syphilis IgG w/Reflex Nonreactive (Nonreactive)
== END 2024-01-04 10:12 | disposition home or self-care (01) ==
PROVIDERS: PCP Family Medicine; Visit Provider Nurse Practitioner Adult Health
DX: R41.82 Altered mental status, unspecified (principal); F29 Unspecified psychosis not due to a substance or known physiological condition
CPT/HCPCS: 36415; 86592; 86780

== ENCOUNTER 2025-08-16 09:13 | Emergency (ER) | payer SELFPAY ==
[2025-08-16 09:37] VITALS: BP 170/88; PULSE 93; RESP 16; O2SAT 97
[2025-08-16 09:40] VITALS: BP 170/88; PULSE 93; TEMP 36.6; O2SAT 97
--- NOTE | 2025-08-16 09:45 | DI.RAD_ITS ---
Exam(s) XR FOOT RT COMPLETE EXAM: XR FOOT RT COMPLETE CLINICAL HISTORY: right foot pain; standing films please. TECHNIQUE: 2D digital imaging was performed. Three views. COMPARISON: No exams were available for comparison FINDINGS: BONES: No acute fracture is present. No bony destructive lesion is seen. Moderate plantar calcaneal spur. JOINTS: No dislocation present. Degenerative changes at the tarsal metatarsal joints. Chronic appearing bony density lateral to the base of the 1st metatarsal. SOFT TISSUE: Normal. IMPRESSION: Degenerative changes at the tarsal metatarsal joints. No acute abnormality. DATA REPOSITORY: RADIATION DOSE DELIVERED:
--- NOTE | 2025-08-16 11:13 | W.ED.GENAD ---
Discharge Plan Disposition Patient Disposition: Home Discharge Details Clinical Impression: Acute foot pain Primary Care Provider: Edson Brunson ED Provider: Dmitri Weaver Home Meds and New Rx's Prescriptions: No Action cholecalciferol (vitamin D3) 25 mcg (1,000 unit) capsule 25 mcg PO DAILY berberine-herbal comb no.18 Capsule 1 cap PO TID (DME) blood-glucose meter Misc See Rx Instructions .ROUTE .MEDSUPPLY Qty: 1 0RF Rx Instructions: As directed to check blood glucose. No insulin. Dispense covered brand. (DME) Blood Glucose Test Strip See Rx Instructions .ROUTE .MEDSUPPLY Qty: 100 3RF Rx Instructions: As directed to check blood glucose daily. No insulin. Dispense covered brand. (DME) lancets Misc See Rx Instructions .ROUTE .MEDSUPPLY Qty: 100 3RF Rx Instructions: As directed to check blood glucose daily. No insulin. Dispense covered brand. albuterol sulfate 90 mcg/actuation HFA aerosol inhaler 2 puff IH Q6H PRN (Reason: shortness of breath or wheezing) Qty: 18 6RF indomethacin 50 mg capsule 50 mg PO TID PRN (Reason: gout flair) Qty: 30 0RF Rx Instructions: administer with food or milk metformin 1,000 mg tablet 1,000 mg PO BID Qty: 180 3RF Discharge Instructions Instructions: Managing acute pain at home Additional Instructions: As discussed, concerned that given your new pain today that there may be an underlying occult fracture that was not visualized on your x-ray. As we discussed there is a particular injury pattern referred to as a Lisfranc fracture which may cause debilitating arthritis if it is missed. Today you declined to have further CT imaging to further assess for this injury, however you did agree to podiatry follow-up as an outpatient. Please use the prescribed crutches, walking boot, and follow-up with podiatry for further assessment. Please follow-up with your primary care provider regarding your visit to the emergency department today. Be sure to discuss results of all test performed here today to include radiology, and laboratory testing as well as results for any pending cultures. Should your symptoms worsen, or if you develop new concerning symptoms, please return immediately emergency department for further evaluation. Stand Alone Forms: Portal Information HPI General Date/Time Provider Initiated Documentation: 11/12/25 09:53. HPI Narrative: MDM/Narrative: Initial Assessment: 60-year-old female with right foot pain after stepping down and hearing a crack. Pain localized to midfoot. Differential Diagnosis: - Lisfranc fracture: Suspected due to midfoot pain. Plan: Weightbearing x-ray, if unable to bear weight, CT scan. - Other foot injuries: Less likely due to absence of twist or turn. Plan: Monitor symptoms, consider further imaging if needed. ED Course: - Ordered weightbearing x-ray - X-ray results are without acute finding as per radiology. Case discussed with the patient we discussed the possibility of Lisfranc fracture if missed may lead to debilitating arthritis and deformity. Patient states due to insurance reasons will decline CT imaging, but will except the podiatry referral, as well as walking boot and crutches. Clinical Impression: - Right foot pain - Suspected Lisfranc fracture Follow-Up: Podiatry This document was created with assistance from [employer]. The patient consented to its use. HPI: The patient is a 60-year-old female with a history of a chronic left foot deformity, previously asymptomatic, now presenting with pain in the right foot. The onset of pain occurred while ascending a step while wearing slippers. The patient describes having high arches and experiencing a spreading sensation in the foot, followed by an audible cracking sound. There was no twisting or turning of the foot involved. She is able to stand independently but experiences discomfort with weight-bearing. Mild edema is noted. There is no history of significant trauma to the same foot or ankle. The patient does not use any assistive devices and is managing the pain with BC powders. ROS: Negative besides as mentioned above Exam: Vital signs: Reviewed. General Appearance: Alert and oriented. No acute distress. HEENT: NCAT, EOMI, not icteric. External ears normal. No rhinorrhea. Moist mucous membranes. Neck: Supple, full range of motion, no observable masses, No meningeal sign. Respiratory: No Respiratory distress. No tachypnea. Cardiovascular: RRR, no edema. Gastrointestinal: Soft, nondistended, No rebound tenderness. Back: No midline tenderness to palpation or palpable step-offs of the C/T/L spine. Musculoskeletal: Right foot shows mild swelling. Pain localized to midfoot. No deformities. Pulses good. Skin: Warm and dry, no rash. Neurological: Normal Gait, Grossly intact. Psychiatric: Appropriate for situation. Radiology: Exam(s) XR FOOT RT COMPLETE EXAM: XR FOOT RT COMPLETE CLINICAL HISTORY: right foot pain; standing films please. TECHNIQUE: 2D digital imaging was performed. Three views. COMPARISON: No exams were available for comparison FINDINGS: BONES: No acute fracture is present. No bony destructive lesion is seen. Moderate plantar calcaneal spur. JOINTS: No dislocation present. Degenerative changes at the tarsal metatarsal joints. Chronic appearing bony density lateral to the base of the 1st metatarsal. SOFT TISSUE: Normal. IMPRESSION: Degenerative changes at the tarsal metatarsal joints. No acute abnormality. Related Data Home Medications Medication Instructions Recorded Confirmed berberine-herbal comb no.18 capsule 1 cap PO TID 01/28/21 08/16/25 blood sugar diagnostic (Blood #100 ea 01/28/21 08/16/25 Glucose Test strips) blood-glucose meter #1 01/28/21 08/16/25 cholecalciferol (vitamin D3) 25 25 mcg PO DAILY 01/28/21 08/16/25 mcg (1,000 unit) capsule lancets #100 ea 01/28/21 08/16/25 albuterol sulfate 90 mcg/actuation 2 puff inhalation Q6H PRN 03/06/23 08/16/25 aerosol inhaler shortness of breath or wheezing #18 grams indomethacin 50 mg capsule 50 mg PO TID PRN gout flair #30 06/29/23 08/16/25 caps metformin 1,000 mg tablet 1,000 mg PO BID #180 tabs 03/01/24 08/16/25 Held on 08/16/25. Instructions: Pt attempting to manage DM with diet Previous Rx's Medication Instructions Recorded blood sugar diagnostic (Blood #100 ea 01/28/21 Glucose Test strips) blood-glucose meter #1 01/28/21 lancets #100 ea 01/28/21 albuterol sulfate 90 mcg/actuation 2 puff inhalation Q6H PRN 03/06/23 aerosol inhaler shortness of breath or wheezing #18 grams indomethacin 50 mg capsule 50 mg PO TID PRN gout flair #30 06/29/23 caps metformin 1,000 mg tablet 1,000 mg PO BID #180 tabs 03/01/24 Held on 08/16/25. Instructions: Pt attempting to manage DM with diet Allergies Allergy/AdvReac Type Severity Reaction Status Date / Time No Known Allergies Allergy Verified 08/16/25 09:40 General Stated Complaint: Orthopedic GLENNA: 3 Course Vital Signs Vital signs: Vital Signs Pulse 93 H 08/16/25 09:37 Respiratory Rate 16 08/16/25 09:37 Blood Pressure 170/88 H 08/16/25 09:37 Pulse Oximetry 97 08/16/25 09:37 Temperature 36.6 C 08/16/25 09:40 Pulse 93 H 08/16/25 09:40 Respiratory Rate 16 08/16/25 09:37 Blood Pressure 170/88 H 08/16/25 09:40 Blood Pressure Mean 115 08/16/25 09:40 Blood Pressure Position Sitting 08/16/25 09:37 Pulse Oximetry 97 08/16/25 09:40 Oxygen Delivery Method Room Air 08/16/25 09:37 Oxygen Flow Rate 0 08/16/25 09:37 Pain Level 5 08/16/25 09:37 PFSH All Active Problems (Updated 08/16/25 @ 11:14 by Dmitri Weaver MD) Acute foot pain (Acute) Renal function impairment (Chronic) Delusions (Acute) Auditory hallucinations (Acute) Visual hallucination (Acute) New onset of headaches (Acute) Chronic daily headache (Acute) Postoperative examination (Acute) History of bilateral salpingo-oophorectomy (Acute) S/P laparoscopic assisted vaginal hysterectomy (LAV[facility]) (Acute) Stress fracture of metatarsal bone of left foot (Acute 03/17/22) Bunionette of left foot (Acute) Left foot pain - 12/25/21 Podiatry note Acquired bilateral metatarsus adductus (Acute) 12/25/21 Podiatry note Type 2 diabetes mellitus with diabetic polyneuropathy (Acute) 12/25/21 Podiatry note Diabetes mellitus (Chronic) Foot deformity, acquired (Acute) Mitral valve prolapse (Acute) Medical History History of rheumatic fever as a child Tubal ligation evaluation (~1995) Surgical History History of bunionectomy of left great toe (01/21/22) [facility] Family History Mother , heart aneurysm Aneurysm Dementia Father Cancer bladder Brother Pancreatic cancer Social History Smoking/Tobacco Use Status: Current-Occasional Tobacco Type: cigarettes Tobacco: How many years used: 25 Quit status: considering quitting Second Hand Exposure: No Smoking risk assessment performed?: Yes Alcohol Intake: never Drug use: Daily Substance use type: marijuana Adopted: No Foster care: No Housing: apartment Number of Children: 1 Communication Needs: None current occupation: [employer] Sexually active: No How often do you talk on the phone with friends or family?: three or more times per week Panel score (0-1 are the most socially isolated patients): 1 What type of physical activity do you participate in: other Details: active at work Frequency: 5-6 times per week Seatbelt use: sometimes Drive intox or ride w/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
[2025-08-16] MEDS: MORPHine IR 15 MG TAB, 4 TABS/BTL PO (11:33)
== END 2025-08-16 12:00 | disposition home or self-care (01) ==
LOC: ER 12:10
PROVIDERS: Emergency Provider General Practice; PCP Family Medicine
DX: M79.671 Pain in right foot (principal); X58.XXXA Exposure to other specified factors, initial encounter
CPT/HCPCS: 99283 ×2; 73630